=== PATIENT | female | born 1990 | race Caucasian/White ===

== ENCOUNTER 2019-08-23 19:10 | Emergency (ER) | payer MEDICAID, SELFPAY ==
[2019-08-23 19:15] VITALS: BP 158/97; PULSE 107; RESP 16; TEMP 37; O2SAT 98; BMI 56.7
--- NOTE | 2019-08-23 19:21 | PC.NURSE ---
Pt states radiant cooling helps with pain
--- NOTE | 2019-08-23 19:28 | W.ED.SKABFB ---
HPI - Skin/Abscess/Foreign Bdy General: Chief complaint: Skin/Abscess/Foreign Body Stated complaint: Burnt finger with steam Time Seen by Provider: 08/23/19 19:27 History of Present Illness: HPI narrative: Patient is a 29-year-old female comes to the ED with a burn on her left index finger. Patient was distally and water and she grabbed the pot spilled some hot water on her right index finger. This occurred just prior to arrival. She states she has lost a little sensation over the left index finger where she has a blister from the burn. Denies any fever, chills, chest pain, shortness of breath, abdominal pain, nausea, vomiting, hematuria, dysuria, diarrhea, constipation, blood in the stool, numbness tingling or weakness to extremities. Review of Systems General: Reports: 10 or more systems reviewed and unremarkable except in HPI and below PFSH ED PFSH: Statuses (acute, chronic, etc) shown below reflect problem list status as previously entered and may not be historically accurate Social History Smoking and tobacco status: never smoked Female Reproductive History: Date of last menstrual period: 08/09/19 Physical Exam Const: COMMON NORMALS: oriented x3 HENMT: COMMON NORMALS: normocephalic HEAD & SCALP: normocephalic MOUTH: oral and palatal mucosa normal THROAT: posterior oropharynx normal and uvula midline Neck/C-Spine: COMMON NORMALS: supple GENERAL: Yes normal visual inspection Resp: COMMON NORMALS: normal respiratory effort, no retractions, no use of accessory muscles and clear to auscultation bilaterally AUSCULTATION: clear to auscultation bilaterally Cardio: COMMON NORMALS: regular rate, regular rhythm, S1 normal heart sound, S2 normal heart sound, no gallops, no clicks, no murmurs and peripheral pulses 2+ throughout RATE: regular rate RHYTHM: regular rhythm HEART SOUNDS: S1 normal and S2 normal PERIPHERAL PULSES: pulses 2+ throughout GI: COMMON NORMALS: normal to inspection, nondistended, normoactive bowel sounds, soft to palpation, non-tender and no masses PALPATION: Yes soft : COMMON NORMALS: Yes no CVA tenderness BLADDER/KIDNEY EXAM: Yes no CVA tenderness Back/Pelvis: COMMON NORMALS: no CVA tenderness Neuro: COMMON NORMALS: oriented x3 and moves all extremities Skin: NARRATIVE SKIN EXAM: Patient has a small blister forming on dorsal side of left index finger. Mild tenderness upon palpation. Full range of motion and neurovascular intact. No other blistering on the hands or fingers of the left hand. No signs of infection. Course Vital Signs: Vital signs: Vital Signs Temperature 98.2 F 08/23/19 20:36 Pulse Rate 97 08/23/19 20:36 Respiratory Rate 14 08/23/19 20:36 Blood Pressure 108/68 08/23/19 20:36 Pulse Oximetry 98 08/23/19 20:36 Discharge Plan Discharge Patient Disposition: Home, Self-Care Clinical Impression: Second degree burn of single finger of left hand, not thumb Qualifiers: Encounter type: initial encounter Qualified Code(s): T23.222A - Burn of second degree of single left finger (nail) except thumb, initial encounter Condition: Stable Discharge Orders: Discharge Order (Routine); Ordered 08/23/19 Ordered By: Jose Alberto Forbes Referrals: Dennise Hicks MD [Primary Care Provider] - Discharge Diet: Regular Discharge Activity: Resume usual activity Activity Restrictions/Additional Instructions: Follow-up with primary care doctor in 7 days for reevaluation. Keep blister area clean and do not pop the blister. Allowing the blisters to heal an open up on its own. Replace bandages over blister and use some Triple Antibiotic ointment to help prevent any infections. Watch for signs of infection such as redness warmth and puslike drainage from burned area. 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
[2019-08-23 20:36] VITALS: BP 108/68; PULSE 97; RESP 14; TEMP 36.8; O2SAT 98
== END 2019-08-23 20:25 | disposition home or self-care (01) ==
PROVIDERS: Emergency Provider Physician Assistant; Family Provider Family Medicine; PCP Family Medicine
DX: T23.222A Burn of second degree of single left finger (nail) except thumb, initial encounter (principal); X11.8XXA Contact with other hot tap-water, initial encounter
CPT/HCPCS: 99281

== ENCOUNTER → 2020-01-23 13:54 | Outpatient (BNVA) | payer MEDICAID, SELFPAY | PROVIDERS: Family Provider Family Medicine; PCP Family Medicine; Visit Provider Specialist | DX: S62.634A Displaced fracture of distal phalanx of right ring finger, initial encounter for closed fracture (principal); W01.0XXA Fall on same level from slipping, tripping and stumbling without subsequent striking against object, initial encounter; M20.011 Mallet finger of right finger(s) | CPT/HCPCS: 73140 ==

== ENCOUNTER 2020-02-13 14:41 | Outpatient (CLI) | payer MEDICAID, SELFPAY ==
--- NOTE | 2020-02-13 14:44 | XR_ITS ---
WS: [id number] 3 views of the right fourth finger, 02/13/2020 Clinical Data: fracture Comparison: Right fourth finger, 01/23/2020. Findings: The fracture of the proximal dorsal base of the right fourth distal phalanx remains unchanged. XR/XR finger RT min 2V [id number] Impression: Fracture of the base of the right fourth distal phalanx.
== END 2020-02-13 14:42 | disposition home or self-care (01) ==
LOC: RAD 14:43
PROVIDERS: PCP Family Medicine; Visit Provider Specialist
DX: S62.634A Displaced fracture of distal phalanx of right ring finger, initial encounter for closed fracture (principal); X58.XXXA Exposure to other specified factors, initial encounter
CPT/HCPCS: 73140

== ENCOUNTER → 2020-03-08 14:26 | Outpatient (BNVA) | payer MEDICAID, SELFPAY | PROVIDERS: PCP Family Medicine; Visit Provider Specialist | DX: S62.634A Displaced fracture of distal phalanx of right ring finger, initial encounter for closed fracture (principal); S69.90XA Unspecified injury of unspecified wrist, hand and finger(s), initial encounter | CPT/HCPCS: 73130 ==

== ENCOUNTER → 2020-03-29 11:12 | Outpatient (BNVA) | payer MEDICAID, SELFPAY | PROVIDERS: PCP Family Medicine; Visit Provider Specialist | DX: S62.634D Displaced fracture of distal phalanx of right ring finger, subsequent encounter for fracture with routine healing (principal); S69.90XD Unspecified injury of unspecified wrist, hand and finger(s), subsequent encounter; X58.XXXD Exposure to other specified factors, subsequent encounter | CPT/HCPCS: 73140 ==

== ENCOUNTER → 2020-04-19 08:57 | Outpatient (BNVA) | payer MEDICAID, SELFPAY | PROVIDERS: PCP Family Medicine; Visit Provider Specialist | DX: S62.634D Displaced fracture of distal phalanx of right ring finger, subsequent encounter for fracture with routine healing (principal); W01.0XXD Fall on same level from slipping, tripping and stumbling without subsequent striking against object, subsequent encounter; M20.011 Mallet finger of right finger(s) | CPT/HCPCS: 73140 ==

== ENCOUNTER 2020-07-07 16:15 | Emergency (ER) | payer MEDICAID, SELFPAY ==
[2020-07-07 16:43] VITALS: BP 118/80; PULSE 95; RESP 18; TEMP 36.4; O2SAT 96; BMI 58.0
--- NOTE | 2020-07-07 17:12 | W.ED.BACK ---
HPI - Back Pain/Injury General: Chief Complaint: Back Pain/Injury Stated Complaint: BACK PAIN Time Seen by Provider: 07/07/20 16:52 Source: patient Mode of arrival: wheelchair Limitations: no limitations History of Present Illness: HPI Narrative: 30-year-old female patient presents to the emergency department with complaints of low back pain. She reports onset of pain when she awoke from a nap on 07/02/2020. Went to urgent care on 07/03/2020, prescribed Parafon forte which has not helped her pain. Reports similar symptoms approximately 1 year ago. She reports pain resolved. She reports lifting a couch, 4 to 6 weeks prior to onset of pain, reports currently moving to another location. States got mad at the couch and lifted the couch to through it outside, experienced LBP at the time but went away several days later. MD elicited complaint: back pain and back injury Pertinent past history: prior back pain Onset (ago): day(s) (6) Timing: constant Similar Symptoms Previously: Yes Quality: dull, aching and spasming Location: lumbar spine Exacerbating factors: movement, walking and lifting Relieving factors: immobilization Context: turning/twisting and bending Associated symptoms: Reports difficulty walking; Deny abdominal pain, chills, fecal incontinence, fever(s), nausea, numbness, syncope, urinary frequency, urinary urgency, vomiting or weakness Treatments prior to arrival: NSAIDS and other (muscle relaxer) Work related injury: No Review of Systems General: Reports: 10 or more systems reviewed and unremarkable except in HPI and below Const: Denies: fever(s), chills or diaphoresis Eyes: Denies: blurry vision or eye redness ENMT: Denies: throat pain, dental pain or disequilibrium Card: Denies: chest pain, swelling of feet/ankles, lightheadedness or syncope Resp: Denies: dyspnea, productive cough, non-productive cough or wheezing GI: Denies: abdominal pain, nausea, vomiting or fecal incontinence : Denies: urinary urgency Musc: Reports: back pain and limited range of motion (lumbar spine); Denies: neck pain, joint stiffness or muscle weakness Skin/Breast: Denies: rash, pruritus or changes in skin color Neuro: Reports: difficulty walking; Denies: headache(s), numbness in extremities, weakness in extremities or frequent falls Psych: Denies: anxiety or depression Zbigniew/Lymph: Denies: easy bruising PFSH ED PFSH: Medical History (Updated 07/07/20 @ 17:26 by HAO Jaquez) GERD (gastroesophageal reflux disease) Surgical History History of surgical removal of ganglion cyst Hx of section Hx of cholecystectomy Family History Mother Diabetes Hypertension Father Diabetes CAD (coronary artery disease) Social History Smoking and tobacco status: never smoked Female Reproductive History: Date of last menstrual period: 08/09/19 Physical Exam Const: COMMON NORMALS: no acute distress, patient oriented x3, healthy appearing and alert GENERAL APPEARANCE: cooperative, comfortable, well kempt and well hydrated NUTRITIONAL APPEARANCE: obese ORIENTATION/CONSCIOUSNESS: Yes awake, Yes oriented to person, Yes oriented to place and Yes oriented to time HENMT: COMMON NORMALS: normocephalic, atraumatic, Normal external nose present and moist oral mucous membranes HEAD & SCALP: normocephalic and atraumatic FACE & SINUS: normal facial exam and sinuses nontender NOSE: Normal external nose present Eye: COMMON NORMALS: Equal, round and reactive pupils present and EOMs intact bilaterally GENERAL EYE: appearance normal, both eyes and all related structures PUPIL: Yes Equal, round and reactive pupils present Neck/C-Spine: COMMON NORMALS: full ROM and no lymphadenopathy GENERAL: Yes normal visual inspection and Yes trachea midline CERVICAL SPINE: Yes cervical ROM normal, No pain with cervical ROM, No Cervical spine tenderness and No Paracervical muscle tenderness Lymph: LYMPHATIC: no lymphadenopathy noted Chest: COMMONS NORMALS: normal inspection of the chest and normal palpation of entire chest wall Resp: COMMON NORMALS: normal respiratory effort, No retractions, No use of accessory muscles and clear to auscultation bilaterally EFFORT & INSPECTION: Yes able to speak in complete sentences AUSCULTATION: clear to auscultation bilaterally Cardio: COMMON NORMALS: regular rhythm, S1 normal heart sound present, S2 normal heart sound present and Peripheral pulses 2+ throughout RHYTHM: regular rhythm HEART SOUNDS: S1 normal heart sound present and S2 normal heart sound present PERIPHERAL PULSES: Peripheral pulses 2+ throughout GI: COMMON NORMALS: Normal to inspection, nondistended, normoactive bowel sounds present, Soft to palpation and non-tender INSPECTION: Yes normal to inspection PALPATION: Yes Soft to palpation : COMMON NORMALS: Yes no CVA tenderness BLADDER/KIDNEY EXAM: Yes no CVA tenderness Back/Pelvis: COMMON NORMALS: no CVA tenderness and thoracic and lumbar spine normal to inspection THORACIC SPINE/UPPER BACK: Yes normal to inspection, Yes pain with ROM, No paraspinal muscle tenderness and No paraspinal muscle spasm LUMBAR SPINE/LOWER BACK: Yes normal to inspection, Yes ROM limited, Yes pain with ROM, Yes lumbar spinal tenderness Lumbar spinal tenderness location: L3, L4 and L5, Yes paraspinal muscle tenderness Lumbar paraspinal muscle tenderness: left, Yes paraspinal muscle spasm Lumbar paraspinal muscle spasm: left and Yes straight leg raise positive left PELVIS: Yes sciatic notch tenderness on the left COCCYX: no swelling Extremity: COMMON NORMALS: normal to inspection and capillary refill normal Neuro: STEPHEN COMA SCALE: document GCS findings Stephen coma scale eye opening: Spontaneous Stephen coma scale verbal response: Orientated Stephen coma scale motor response: Obey commands [place] coma scale total score: 15 COMMON NORMALS: patient oriented x3 and no focal motor deficits SENSORIUM/ORIENTATION: Yes alert, Yes oriented to person, Yes oriented to place and Yes oriented to time SPEECH: speech normal MONOFILAMENT EXAM PERFORMED: Yes Monofilament Exam (small fiber function): L great toe: normal, L 3rd toe: normal, L 5th toe: normal, R great toe: normal, R 3rd toe: normal and R 5th toe: normal MOTOR EXAM: 5/5 motor strength present throughout Psych: COMMON NORMALS: mental status grossly normal, Normal thought process present and cooperative APPEARANCE: Yes well kempt ACTIVITY/MOTOR BEHAVIOR: Yes appropriate eye contact THOUGHT PROCESS: Normal thought process present Skin: COMMON NORMALS: no rashes or lesions noted and turgor normal GENERAL SKIN EXAM: no rashes or lesions noted and turgor normal Course Vital Signs: Vital signs: Vital Signs Temperature 97.6 F 07/07/20 16:43 Pulse Rate 95 07/07/20 16:43 Respiratory Rate 18 07/07/20 16:43 Blood Pressure 118/80 07/07/20 16:43 Pulse Oximetry 96 07/07/20 16:43 Discharge Plan Discharge Patient Disposition: Home Clinical Impression: Low back strain Qualifiers: Encounter type: initial encounter Qualified Code(s): S39.012A - Strain of muscle, fascia and tendon of lower back, initial encounter Low back pain Qualifiers: Chronicity: acute Back pain laterality: midline Sciatica presence: with sciatica Sciatica laterality: sciatica of left side Qualified Code(s): M54.42 - Lumbago with sciatica, left side Condition: Stable Prescriptions: New Robaxin-750 750 mg tablet 750 mg PO Q8H Qty: 14 RF: 0 prednisone 20 mg tablet 20 mg PO BID 5 Days Qty: 10 RF: 0 No Action norgestimate-ethinyl estradiol [Tri-Sprintec (28)] 0.18/0.215/0.25 mg-35 mcg (28) tablet 1 tab PO DAILY RF: 0 Discharge Orders: Discharge ED (Routine); Ordered 07/07/20 Ordered By: Lindsay Carroll Referrals: Dennise Hicks MD [Primary Care Provider] - Discharge Diet: Usual diet Discharge Activity: Limit activity as instructed Patient Instructions: Low Back Strain (ED), Acute Low Back Pain (ED) Activity Restrictions/Additional Instructions: apply Warm, moist compresses alternate with cool compresses to the affected area several times daily Follow up with your PCP next week without fail outpatient MRI has been ordered - social service will contact you with appt take steroid with food to avoid stomach upset return to the ED if you experience leg weakness, falling, urinary or fecal incontinence Coding Level of Care Code 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
[2020-07-07] MEDS: orphenadrine 30 mg/mL Inj 2 mL 60 MG IM (17:38)
--- NOTE | 2020-07-11 12:10 | DCPLANNER ---
lodging facilities manager had message to schedule an outpatient MRI for patient. lodging facilities manager faxed the order for the MRI to centralized scheduling, will call for appointment information.
--- NOTE | 2020-08-06 16:50 | DCPLANNER ---
Patients MRI was denied by insurance. state manager called patient to inform patient that if she still thought that she needed an MRI that she would need to see her primary care, patient stated that she seen her primary care. Patient stated that she would still like to see someone. state manager called the ortho clinic, spoke with Jody, gave clinic patients information. state manager was told that patients information would be printed off and reviewed. Clinic will call patient with appointment information.
--- NOTE | 2020-08-10 14:32 | DCPLANNER ---
Patient has a follow up appointment scheduled for Friday, August 14, [address] at 1:[address] Sawant. Clinic will call patient with appointment information.
--- NOTE | 2020-09-14 14:56 | DCPLANNER ---
Patient had a follow up appointment scheduled for 08.14.20 with ortho - patient did attend appointment.
== END 2020-07-07 17:56 | disposition home or self-care (01) ==
PROVIDERS: Emergency Provider Nurse Practitioner Family; PCP Family Medicine
DX: S39.012A Strain of muscle, fascia and tendon of lower back, initial encounter (principal); M54.42 Lumbago with sciatica, left side; X50.0XXA Overexertion from strenuous movement or load, initial encounter
CPT/HCPCS: 12345; 96372; 99281; 99283; J2360

== ENCOUNTER → 2020-08-14 14:02 | Outpatient (BNVA) | payer MEDICAID, SELFPAY | PROVIDERS: PCP Family Medicine; Visit Provider Orthopaedic Surgery | DX: M54.9 Dorsalgia, unspecified (principal) | CPT/HCPCS: 72114 ==

== ENCOUNTER 2020-08-26 17:46 | Emergency (ER) | payer BC, MEDICAID, SELFPAY ==
[2020-08-26 17:49] VITALS: BP 153/81; PULSE 88; RESP 18; O2SAT 95; BMI 59.8
--- NOTE | 2020-08-26 17:51 | ED_ITS ---
HPI - Back Pain/Injury General: Chief Complaint: Back Pain/Injury Stated Complaint: BACK PAIN Time Seen by Provider: 08/26/20 17:51 Source: patient Mode of arrival: ambulatory Limitations: no limitations History of Present Illness: HPI Narrative: 30-year-old female comes in today for complaints of low back pain. Patient states that she went to get up from the toilet and felt a sudden sharp pain to her low mid back radiating to the left side. Patient appears well. Patient appears in no distress. Patient reports that she had sudden onset of pain and difficulty standing without discomfort. Patient is obese, with her back pain starting about 2 months ago. Review of Systems General: Reports: 10 or more systems reviewed and unremarkable except in HPI and below Musc: Reports: back pain PFSH ED PFSH: Medical History (Updated 08/26/20 @ 19:28 by NED Holcomb) GERD (gastroesophageal reflux disease) Surgical History History of surgical removal of ganglion cyst Hx of section Hx of cholecystectomy Family History Mother Diabetes Hypertension Father Diabetes CAD (coronary artery disease) Social History Smoking and tobacco status: never smoked Female Reproductive History: Date of last menstrual period: 08/09/19 Physical Exam Const: COMMON NORMALS: no acute distress and patient oriented x3 GENERAL APPEARANCE: cooperative HENMT: COMMON NORMALS: normocephalic and Normal external nose present HEAD & SCALP: normal to inspection and normocephalic NOSE: Normal external nose present MOUTH: Normal oral and palatal mucosa present Eye: GENERAL EYE: appearance normal, both eyes and all related structures Neck/C-Spine: COMMON NORMALS: full ROM Chest: COMMONS NORMALS: normal inspection of the chest Resp: COMMON NORMALS: normal respiratory effort EFFORT & INSPECTION: Yes able to speak in complete sentences Cardio: COMMON NORMALS: regular rate and regular rhythm RATE: regular rate RHYTHM: regular rhythm GI: COMMON NORMALS: non-tender : COMMON NORMALS: Yes no CVA tenderness BLADDER/KIDNEY EXAM: Yes no CVA tenderness Back/Pelvis: COMMON NORMALS: no CVA tenderness OTHER: Tenderness in the L4- L5, L5-S1 area to the mid vertebral area, tenderness to the left paraspinous muscles. Negative leg lift test. Extremity: COMMON NORMALS: normal to inspection Neuro: COMMON NORMALS: patient oriented x3 and moves all extremities Psych: COMMON NORMALS: mental status grossly normal and cooperative Skin: COMMON NORMALS: no rashes or lesions noted GENERAL SKIN EXAM: no rashes or lesions noted Course Vital Signs: Vital signs: Vital Signs Pulse Rate 88 08/26/20 17:49 Respiratory Rate 18 08/26/20 17:49 Blood Pressure 153/81 08/26/20 17:49 Pulse Oximetry 95 08/26/20 17:49 MDM - Back Pain/Injury MDM Narrative: Medical decision making narrative: Patient presents with low back pain. Patient reports pain exacerbated when she stood up from the toilet today causing her to cry and elicit severe discomfort. On exam patient has muscle tenderness of the left side of the paraspinous muscles of the lumbar spine. Patient also had some central spinal vertebral tenderness at L5-S1 area. Differential diagnosis includes intervertebral disc disease, facet arthropathy, lumbar strain. Due to persistent worsening pain for more than 60 days we went ahead and did a CT of the lumbar spine which indicated degenerative spinal joint disease and facet arthropathy of the lumbar and sacroiliac areas. No sign of protrusion disc or canal stenosis was noted. I reviewed the exam with patient with recommendations for treatment and follow-up. Patient reported understanding agreed to plan. Discharge Plan Discharge Patient Disposition: Home Clinical Impression: Arthritis of facet joint of lumbar spine, Sacral disorder Condition: Stable Prescriptions: New ibuprofen 800 mg tablet 800 mg PO Q8H PRN (Reason: pain) Qty: 30 RF: 0 cyclobenzaprine 10 mg tablet 10 mg PO BEDTIME Qty: 10 RF: 0 No Action norgestimate-ethinyl estradiol [Tri-Sprintec (28)] 0.18/0.215/0.25 mg-35 mcg (28) tablet 1 tab PO DAILY RF: 0 Tylenol Extra Strength 500 mg Tablet 1,000 mg PO PRN RF: 0 levothyroxine 25 mcg Tablet 25 mcg PO QAM RF: 0 diclofenac sodium 1 tab PO TID RF: 0 Discharge Orders: Discharge ED (Routine); Ordered 08/26/20 Ordered By: Lio Loving Referrals: Dennise Hicks MD [Primary Care Provider] - Discharge Diet: Usual diet Discharge Activity: Increase activity as tolerated Patient Instructions: Back Pain (ED) Activity Restrictions/Additional Instructions: Home and rest. Activity as tolerated. Gentle stretching and range of motion exercise. Follow-up with primary care for further treatment. Return to the emergency department for new concerns. Do not use ibuprofen with diclofenac or naproxen. 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
--- NOTE | 2020-08-26 18:01 | CTR_ITS ---
PROCEDURE INFORMATION: Exam: CT Lumbar Spine Without Contrast Exam date and time: 08/26/2020 6:07 PM Age: 30 years old Clinical indication: Low back pain; Patient HX: C/O lbp denies specific injury; Additional info: Injury, lumbar radiculopathy TECHNIQUE: Imaging protocol: Computed tomography images of the lumbar spine without contrast. Radiation optimization: All CT scans at this facility use at least one of these dose optimization techniques: automated exposure control; mA and/or kV adjustment per patient size (includes targeted exams where dose is matched to clinical indication); or iterative reconstruction. COMPARISON: CR XR lumbar spine min 4V [id number] 08/14/2020 2:08 PM RADIATION DOSE METRICS: Total DLP (mGy-cm): 2410.23 FINDINGS: Vertebrae: Mild to moderate lower lumbar facet arthropathy. L1-L2: No significant disc protrusion. No severe spinal canal stenosis. No significant neural foraminal narrowing. L2-L3: No significant disc protrusion. No spinal canal stenosis. No neural foraminal narrowing. L3-L4: No significant disc protrusion. No severe spinal canal stenosis. No significant neural foraminal narrowing. L4-L5: No significant disc protrusion. No severe spinal canal stenosis. No significant neural foraminal narrowing. L5-S1: No significant disc protrusion. No severe spinal canal stenosis. No significant neural foraminal narrowing. Sacrum/coccyx: There are [id number] degenerative changes across the sacroiliac joints. Soft tissues: Unremarkable. CT/CT lumbar spine wo con* [id number] IMPRESSION: 1. There are [id number] degenerative changes across the sacroiliac joints. 2. Mild to moderate lower lumbar facet arthropathy. Radiation Dose CTDIVOL = (mGy): DLP = 2410.23 (mGy-cm)
--- NOTE | 2020-08-26 18:44 | PC.PHAR ---
pt pharmacy is closed to verify medications-pt states she takes the medications entered and states she is unsure of the mg on the diclofenac and states she thinks she takes 25mcg of the levothyroxine and states she thinks the name of her bc is [id number]
[2020-08-26] MEDS: ibuprofen 800 mg tablet PO (19:28)
[2020-08-26 19:35] VITALS: BP 138/80; PULSE 87; RESP 18; O2SAT 98
== END 2020-08-26 19:36 | disposition home or self-care (01) ==
PROVIDERS: Emergency Provider Nurse Practitioner Family; PCP Family Medicine
DX: M47.816 Spondylosis without myelopathy or radiculopathy, lumbar region (principal); M53.3 Sacrococcygeal disorders, not elsewhere classified
CPT/HCPCS: 12345; 72131; 99281; 99283

== ENCOUNTER 2020-11-30 20:37 | Emergency (ER) | payer BC, MEDICAID, SELFPAY ==
[2020-11-30 20:53] VITALS: BP 163/107; PULSE 106; RESP 18; TEMP 37.1; O2SAT 96; BMI 59.3
[2020-11-30 23:43] VITALS: BP 162/75; PULSE 93; RESP 18; O2SAT 96
--- NOTE | 2020-11-30 23:52 | XRR_ITS ---
PROCEDURE INFORMATION: Exam: XR Chest Exam date and time: 12/01/2020 12:06 AM Age: 30 years old Clinical indication: Cough; Additional info: Cough congestion TECHNIQUE: Imaging protocol: XR of the chest. Views: 1 view. COMPARISON: CR Chest 2 views* [id number] 06/19/2019 11:00 AM FINDINGS: Lungs: Unremarkable. No consolidation. Pleural spaces: Unremarkable. No pleural effusion. No pneumothorax. Heart/Mediastinum: Unremarkable. No cardiomegaly. Bones/joints: Unremarkable. XR/XR chest 1V portable [id number] IMPRESSION: No acute findings.
--- NOTE | 2020-12-01 00:18 | ED_ITS ---
HPI - General Adult General: Chief complaint: General Medical Stated complaint: cough,congestion Time Seen by Provider: 11/30/20 23:28 Source: patient Mode of arrival: ambulatory Limitations: no limitations History of Present Illness: HPI narrative: 30-year-old female patient presents to the emergency department with 4-day history of chest heaviness that started 4 days ago, she had onset of cough and congestion started yesterday. She reports coughing up yellow thick sputum. She states noted increased cough with wheezing tonight. She reports her daughter has been ill with similar symptoms last week. She denies fever chills, denies nausea vomiting diarrhea. She denies difficulty breathing. She denies leg swelling. She states does not have Covid -reports her daughter was ill with Covid last June and this is not what she is experiencing because she is not that sick. Onset (ago): day(s) (4) Associated symptoms: Reports cough; Deny chest pain, diaphoresis, dyspnea, headache(s), malaise, nausea, rash, palpitations or vomiting Treatments prior to arrival: none Review of Systems General: Reports: 10 or more systems reviewed and unremarkable except in HPI and below Const: Denies: fever(s), chills, body aches, fatigue, malaise or diaphoresis Eyes: Denies: blurry vision or eye redness ENMT: Reports: nasal discharge and nasal congestion; Denies: throat pain, odynophagia, swelling of lips/tongue, dental pain or disequilibrium Card: Denies: chest pain, palpitations, irregular heart rhythm, edema, swelling of feet/ankles, lightheadedness, dyspnea on exertion, orthopnea, leg pain with exertion or acrocyanosis Resp: Reports: productive cough and chest congestion; Denies: dyspnea, non-productive cough, wheezing or hemoptysis GI: Denies: abdominal pain, nausea, vomiting, heartburn, diarrhea or constipation : Denies: difficulty voiding or dysuria Musc: Denies: neck pain or back pain Skin/Breast: Denies: rash or pruritus Neuro: Denies: headache(s), numbness in extremities, weakness in extremities, difficulty walking or behavioral changes Psych: Denies: anxiety or depression Zbigniew/Lymph: Denies: easy bruising [facility] ED PFSH: Medical History (Updated 12/01/20 @ 01:14 by HAO Jaquez) GERD (gastroesophageal reflux disease) Surgical History History of surgical removal of ganglion cyst Hx of section Hx of cholecystectomy Family History Mother Diabetes Hypertension Father Diabetes CAD (coronary artery disease) Social History Smoking and tobacco status: never smoked Female Reproductive History: Date of last menstrual period: 08/09/19 Physical Exam Const: COMMON NORMALS: no acute distress, patient oriented x3, healthy appearing, alert and well nourished GENERAL APPEARANCE: cooperative, comfortable, well kempt, well developed and well hydrated NUTRITIONAL APPEARANCE: overweight ORIENTATION/CONSCIOUSNESS: Yes awake, Yes oriented to person, Yes oriented to place and Yes oriented to time HENMT: COMMON NORMALS: normocephalic, atraumatic, external ears normal, EAC's normal, TM's normal bilaterally, Normal external nose present and moist oral mucous membranes HEAD & SCALP: normal to inspection, normocephalic and atraumatic FACE & SINUS: normal facial exam, sinuses nontender and face symmetric NOSE: Normal external nose present EXTERNAL EAR: Yes external ears normal EXTERNAL AUDITORY CANAL: EAC's normal TYMPANIC MEMBRANE: TM's normal bilaterally MOUTH: Normal oral and palatal mucosa present, lip normal and tongue normal THROAT: posterior oropharynx normal, tonsils normal and uvula midline Eye: COMMON NORMALS: Equal, round and reactive pupils present and EOMs intact bilaterally GENERAL EYE: appearance normal, both eyes and all related structures ALIGNMENT: Yes alignment normal PERIORBITAL: periorbital findi ngs normal EYELID: eyelids normal PUPIL: Yes Equal, round and reactive pupils present Neck/C-Spine: COMMON NORMALS: full ROM, no lymphadenopathy and supple GENERAL: Yes normal visual inspection and Yes trachea midline CERVICAL SPINE: Yes cervical ROM normal Lymph: LYMPHATIC: no lymphadenopathy noted Chest: COMMONS NORMALS: normal inspection of the chest and normal palpation of entire chest wall Resp: COMMON NORMALS: normal respiratory effort, No retractions, No use of accessory muscles and clear to auscultation bilaterally EFFORT & INSPECTION: Yes able to speak in complete sentences, No respiratory distress, No labored and No audible wheezes AUSCULTATION: clear to auscultation bilaterally Cardio: COMMON NORMALS: regular rate, regular rhythm, S1 normal heart sound pr esent, S2 normal heart sound present and Peripheral pulses 2+ throughout RATE: regular rate RHYTHM: regular rhythm HEART SOUNDS: S1 normal heart sound present and S2 normal heart sound present PERIPHERAL PULSES: Peripheral pulses 2+ throughout GI: COMMON NORMALS: Normal to inspection, nondistended, normoactive bowel sounds present, Soft to palpation and non-tender INSPECTION: Yes normal to inspection PALPATION: Yes Soft to palpation : COMMON NORMALS: Yes no CVA tenderness BLADDER/KIDNEY EXAM: Yes no CVA tenderness Back/Pelvis: COMMON NORMALS: no CVA tenderness, thoracic and lumbar spine normal to inspection, no thoracic nor lumbar tenderness, thoraco-lumbar ROM normal and straight leg raise negative bilaterally Extremity: COMMON NORMALS: normal to inspection, full ROM, capillary refill normal and no pedal edema GENERAL: Yes normal exam except as noted Neuro: COMMON NORMALS: patient oriented x3 and no focal motor deficits SENSORIUM/ORIENTATION: Yes alert, Yes oriented to person, Yes oriented to place and Yes oriented to time Psych: COMMON NORMALS: mental status grossly normal, Normal thought process present and cooperative APPEARANCE: Yes well kempt ACTIVITY/MOTOR BEHAVIOR: Yes appropriate eye contact THOUGHT PROCESS: Normal thought process present Skin: COMMON NORMALS: no rashes or lesions noted and turgor normal GENERAL SKIN EXAM: no rashes or lesions noted and turgor normal Course Reevaluation(s): Reevaluation #1: Albuterol treatment with inhaler; she reports can breathe much improved chest heaviness resolved and cough resolved. Covid testing offered but patient declined. Time: 01:00 Vital Signs: Vital signs: Vital Signs Temperature 98.8 F 11/30/20 20:53 Pulse Rate 92 12/01/20 01:43 Respiratory Rate 18 12/01/20 01:43 Blood Pressure 121/71 12/01/20 01:43 Pulse Oximetry 94 12/01/20 01:43 [facility] - General Adult Imaging Data^: CXR: Radiologist's impression: Raz [address] [id number] ReportSigned Patient: uJan A Boudreaux #: [id number]: 1990Acct#:[id number]/Sex: 30 / FADM Date: 11/30/20Loc: ERRoom/Bed:Attending Dr: Ordering Provider/Ordering MD: Lindsay Carroll Date of Service: 11/30/20 Procedure(s): XR chest 1V portable [id number] Accession Number(s): [id number] Report Number: [id number] PROCEDURE INFORMATION: Exam: XR Chest Exam date and time: 12/01/2020 12:06 AM Age: 30 years old Clinical indication: Cough; Additional info: Cough congestion TECHNIQUE: Imaging protocol: XR of the chest. Views: 1 view. COMPARISON: CR Chest 2 views* [id number] 06/19/2019 11:00 AM FINDINGS: Lungs: Unremarkable. No consolidation. Pleural spaces: Unremarkable. No pleural effusion. No pneumothorax. Heart/Mediastinum: Unremarkable. No cardiomegaly. Bones/joints: Unremarkable. XR/XR chest 1V portable [id number] IMPRESSION: No acute findings. Dictated By:Jose Alex MDSigned By:Jose Alex MDSigned Date/Time:12/01/2047DD/ Discharge Plan Discharge Patient Disposition: Home Clinical Impression: Acute bronchitis Qualifiers: Bronchitis organism: unspecified organism Qualified Code(s): J20.9 - Acute bronchitis, unspecified Condition: Stable Prescriptions: New prednisone 20 mg tablet 20 mg PO DAILY 5 Days Qty: 5 RF: 0 No Action norgestimate-ethinyl estradiol [Tri-Sprintec (28)] 0.18/0.215/0.25 mg-35 mcg (28) tablet 1 tab PO DAILY RF: 0 Tylenol Extra Strength 500 mg Tablet 1,000 mg PO PRN RF: 0 levothyroxine 25 mcg Tablet 25 mcg PO QAM RF: 0 diclofenac sodium 1 tab PO TID RF: 0 ibuprofen 800 mg tablet 800 mg PO Q8H PRN (Reason: pain) Qty: 30 RF: 0 cyclobenzaprine 10 mg tablet 10 mg PO BEDTIME Qty: 10 RF: 0 Discharge Orders: Discharge ED (Routine); Ordered 12/01/20 Ordered By: Lindsay Carroll Referrals: Godfrey Mitchell MD [Primary Care Provider] - Discharge Diet: Usual diet Discharge Activity: Resume usual activity Patient Instructions: How to Use a Metered-Dose Inhaler (ED), Acute Bronchitis (ED), Opioid Safety Activity Restrictions/Additional Instructions: Drink plenty of fluids to stay hydrated Albuterol inhaler 2 puffs every 4 hours as directed by respiratory therapy, use as needed for cough and congestion/chest heaviness Return to the emergency department if you develop chest pain, shortness of breath, inability to catch your breath or other concerning symptoms Follow-up with your primary care next week if not completely improved Tylenol/ibuprofen as needed for pain/discomfort. Use as directed on bottle. Coding Level of Care Code ED Sander Hand for Hermelindo 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
[2020-12-01] MEDS: predniSONE 20 mg Tablet PO (00:36)
[2020-12-01 00:37] VITALS: BP 141/91; PULSE 92; RESP 18; O2SAT 96
[2020-12-01 01:00] VITALS: PULSE 97; RESP 18; O2SAT 97
[2020-12-01] MEDS: albuterol 8 gm MDI 2 PUFF INHALATION (01:01)
[2020-12-01 01:06] VITALS: PULSE 92
[2020-12-01 01:43] VITALS: BP 121/71; PULSE 92; RESP 18; O2SAT 94
== END 2020-12-01 01:46 | disposition home or self-care (01) ==
PROVIDERS: Emergency Provider Nurse Practitioner Family; PCP Family Medicine
DX: J20.9 Acute bronchitis, unspecified (principal)
CPT/HCPCS: 71045; 94640; 99283; J3535; J7512

== ENCOUNTER 2021-07-09 10:01 | Outpatient (CLI) | payer BC, MEDICAID, SELFPAY ==
[2021-07-09 10:20] VITALS: BP 131/84; PULSE 113; RESP 20; TEMP 36.9; O2SAT 97; BMI 62.3
--- NOTE | 2021-07-09 12:12 | PC.NURSE ---
One attempt at IV was performed by JULIA, two attempts by WINSTON and one attempt by TOBI, pt requested medication by injection rather than more attempts at IV starts. Explained the injections are thought to be less effective than the infusion, pt voiced understanding.
[2021-07-09 12:48] VITALS: BP 124/71; PULSE 97; RESP 18; TEMP 36.9; O2SAT 94
== END 2021-07-09 10:02 | disposition home or self-care (01) ==
LOC: OPS 10:07
PROVIDERS: PCP Pediatrics; Visit Provider Nurse Practitioner Family
DX: U07.1 COVID-19 (principal)
CPT/HCPCS: 96372

== ENCOUNTER 2021-07-10 12:10 | Emergency (ER) | payer BC, MEDICAID, SELFPAY ==
--- NOTE | 2021-07-10 12:15 | ED_ITS ---
HPI - SOB/Dyspnea General: Chief Complaint: COVID symptoms Stated Complaint: SOB/COVID + Time Seen by Provider: 07/10/21 12:14 History of Present Illness: HPI Narrative: Ms. Boudreaux is a 31-year-old lady with significant past medical history of hypothyroidism who presents to the emergency department due to shortness of breath, nausea, vomiting. Symptom onset was 6 days ago. She initially had cough which was not productive and generalized malaise. She tested positive for Covid at that time. Since that time symptoms have continued. She notes nausea, vomiting, and diarrhea that started yesterday. She describes not being able to keep anything down and f eeling weak. Overall the course of symptoms has worsened. Intensity is moderate to severe. No other known specific exacerbating or alleviating factors. Review of Systems General: Reports: 10 or more systems reviewed and unremarkable except in HPI and below PFSH ED PFSH: Medical History (Updated 07/10/21 @ 19:47 by Masood López MD) GERD (gastroesophageal reflux disease) Surgical History History of surgical removal of ganglion cyst Hx of section Hx of cholecystectomy Family History Mother Diabetes Hypertension Father Diabetes CAD (coronary artery disease) Social History Smoking and tobacco status: never smoked Female Reproductive History: Date of last menstrual period: 08/09/19 Physical Exam Narrative: EXAM NARRATIVE: GENERAL/CONSTITUTIONAL -somewhat ill-appearing. No acute distress. Eyes - PERRL, no conjunctival injection ENMT - Atraumatic external nose and ears. Moist mucous membranes NECK - supple. trachea midline CARDIOVASCULAR - regular rate and rhythm. Normal peripheral perfusion RESPIRATORY - coarse to auscultation bilaterally. When not on supplemental oxygen patient has tachypnea and mild increased work of breathing. ABDOMEN/GI - Nontender/Nondistended. No tenderness to percussion or evidence of peritonitis MSK - Extremities without obvious deformity or tenderness to palpation SKIN - Warm, Dry NEURO - alert and appropriately oriented. Moves all extremities equally. Course ED course: - Patient was seen and evaluated by me at bedside - Patient placed on cardiac monitors, IV access obtained - Initial evaluation notable for exam as noted above, nontoxic -Symptom treatment ordered - Labs notable for no leukocytosis, similar to prior now microcytic anemia. No acute electrolyte abnormality to explain symptoms. Urinalysis not concerning for urinary tract infection in the absence of specific urinary symptoms, nitrate negative, and presence of squamous epithelial contamination. - Imaging notable for ED read of chest x-ray with only minimal findings. After discussion with the patient, in the context of symptoms and clinical exam a D- dimer was ordered. D-dimer elevated and therefore CTA was ordered. No evidence of pulmonary embolism. - Upon serial reexamination after treatment the patient was improved. Patient was comfortable with discharge on home oxygen and qualified for home oxygen after RT evaluation. - Based on patient history, evaluation, labs, and imaging as interpreted the most likely cause of the patient's condition is COVID-19 with hypoxemia requiring supplemental oxygen. - The results of ED evaluation were discussed with the patient including prescriptions and/or symptomatic cares (if applicable) including appropriate and responsible use, followup plan, and return precautions. The patient verbalized understanding and felt safe for discharge. - Patient discharged in satisfactory condition. Vital Signs: Vital signs: Vital Signs Pulse Rate 96 07/10/21 18:06 Respiratory Rate 18 07/10/21 12:26 Blood Pressure 112/76 07/10/21 12:26 Pulse Oximetry 88 L 07/10/21 19:16 MDM - SOB/Dyspnea Medical Records: Attestation: I reviewed the patient's medical records. Lab Data: Attestation: I reviewed the patient's lab results. Labs: Lab Results 07/10/21 07/10/21 07/10/21 13:33 13:33 13:33 WBC 6.0 10^3/uL 10^3/ uL (4.0-10.0) RBC 4.43 10^6/uL 10^6 /uL (4.1-5.3) Hgb 10.8 g/dL L g/dL (11.5-15.3) Hct 34.7 % L % (37.0-47.0) MCV 78.3 fl L fl (81-99) MCH 24.4 pg L pg (28.0-34.0) MCHC 31.1 g/dL g/dL (30.0-36.0) RDW 15.8 % H % (12.1-15.1) Plt Count 237 10^3/cmm 10^3 /cmm (130-400) MPV 11.0 fL H fL (7.4-10.4) Neut % (Auto) 61.2 % % Lymph % (Auto) 33.1 % % [place] % (Auto) 5.3 % % Eos % (Auto) 0.2 % % Baso % (Auto) 0.0 % % Neut # (Auto) 3.67 10^3/uL 10^3 /uL (1.8-7.7) Lymph # (Auto) 2.0 10^3/uL 10^3/ uL (0.8-4.8) [place] # (Auto) 0.3 10^3/uL 10^3/ uL (0.2-0.9) Eos # (Auto) 0.0 10^3/uL 10^3/ uL (0.0-0.8) Baso # (Auto) 0.0 10^3/uL 10^3/ uL (0.0-0.1) Nucleated RBC % (a uto) 0 % % Nucleated RBCs # 0.0 /100WBC /100W BC D-Dimer Specimen Type Sample Site ABG pH ABG pCO2 ABG pO2 ABG HCO3 ABG Base Excess Job Test Hematocrit O2 Delivery Device Auto Mechanics Teacher ID Sodium 137 mmol/L mmol/L (136-145) Potassium 3.7 mmol/L mmol/L (3.5-5.1) Chloride 101 mmol/L mmol/L (98-107) Carbon Dioxide 22 mmol/L mmol/L (22-29) Anion Gap 17.7 (5-19) BUN 5 mg/dL L mg/dL (6-20) Creatinine 0.8 mg/dL mg/dL (0.5-0.9) GFR Calculation 83.7 mL/min L mL/ min (90-130) Glucose 88 mg/dL mg/dL (65-115) Calculated Osmolal ity 281 mOsm/kg L mOs m/kg (285-295) Lactate 1.5 mmol/L mmol/L (0.5-2.2) Calcium 7.5 mg/dL L mg/dL (8.5-10.5) Total Bilirubin 0.2 mg/dL mg/dL (0.15-1.2) AST 44 U/L H U/L (0-32) ALT 16 U/L U/L (0-33) Alkaline Phosphata se 80 IU/L IU/L (35-105) C-Reactive Protein 72.3 mg/L H mg/L (0.0-4.9) Total Protein 6.4 g/dL L g/dL (6.6-8.7) Albumin 3.1 g/dL L g/dL (3.5-5.2) Globulin 3.3 g/dL g/dL (1.3-4.6) Procalcitonin 0.09 ng/mL ng/mL (0-0.5) TSH 3.28 uIU/mL uIU/m L (0.27-4.20) HCG, Qual Urine Color Urine Appearance Urine pH Ur Specific Gravit y Urine Protein Urine Glucose (UA) Urine Ketones Urine Blood Urine Nitrate Urine Bilirubin Urine Urobilinogen Ur Leukocyte Maria Guadalupe ase Urine RBC Urine WBC Ur Squamous Epith Cells Amorphous Sediment Urine Bacteria 07/10/21 07/10/21 07/10/21 13:33 13:33 13:50 WBC RBC Hgb Hct MCV MCH MCHC RDW Plt Count MPV Neut % (Auto) Lymph % (Auto) [place] % (Auto) Eos % (Auto) Baso % (Auto) Neut # (Auto) Lymph # (Auto) [place] # (Auto) Eos # (Auto) Baso # (Auto) Nucleated RBC % (a uto) Nucleated RBCs # D-Dimer Specimen Type Arterial Sample Site Radial, right ABG pH 7.47 H (7.35-7.45) ABG pCO2 37.0 mmHg mmHg (35-45) ABG pO2 49.6 mmHg L mmHg (80.0-100.0) ABG HCO3 26.7 mmol/L H mmo l/L (22-26) ABG Base Excess 3.0 mmol/L H mmol /L (-2.0-2.0) Job Test Pos Hematocrit 35.7 % L % (37-47) O2 Delivery Device None Auto Mechanics Teacher ID Hensa Sodium Potassium Chloride Carbon Dioxide Anion Gap BUN Creatinine GFR Calculation Glucose Calculated Osmolal ity Lactate Calcium Total Bilirubin AST ALT Alkaline Phosphata se C-Reactive Protein Total Protein Albumin Globulin Procalcitonin TSH HCG, Qual Negative (Negative) Urine Color Yellow (Yellow) Urine Appearance Clear (CLEAR) Urine pH 5 (5-7) Ur Specific Gravit y 1.020 (1.005-1.030) Urine Protein Trace (Negative) Urine Glucose (UA) Norm (Normal) Urine Ketones Negative (Negative) Urine Blood Neg (Negative) Urine Nitrate Negative (Negative) Urine Bilirubin 1+ H (Negative) Urine Urobilinogen 4 mg/dL H mg/dL (Negative) Ur Leukocyte Maria Guadalupe ase Negative (Negative) Urine RBC None /hpf /hpf (0-2) Urine WBC 0-4 /hpf H /hpf (0-5) Ur Squamous Epith Cells 15-25 /hpf H /hpf (0-5) Amorphous Sediment Not Reportable Urine Bacteria 3+ /hpf H /hpf (NONE) 07/10/21 15:20 WBC RBC Hgb Hct MCV MCH MCHC RDW Plt Count MPV Neut % (Auto) Lymph % (Auto) [place] % (Auto) Eos % (Auto) Baso % (Auto) Neut # (Auto) Lymph # (Auto) [place] # (Auto) Eos # (Auto) Baso # (Auto) Nucleated RBC % (a uto) Nucleated RBCs # D-Dimer 0.68 ug/mIFEU H u g/mIFEU (0-0.59) Specimen Type Sample Site ABG pH ABG pCO2 ABG pO2 ABG HCO3 ABG Base Excess Job Test Hematocrit O2 Delivery Device Auto Mechanics Teacher ID Sodium Potassium Chloride Carbon Dioxide Anion Gap BUN Creatinine GFR Calculation Glucose Calculated Osmolal ity Lactate Calcium Total Bilirubin AST ALT Alkaline Phosphata se C-Reactive Protein Total Protein Albumin Globulin Procalcitonin TSH HCG, Qual Urine Color Urine Appearance Urine pH Ur Specific Gravit y Urine Protein Urine Glucose (UA) Urine Ketones Urine Blood Urine Nitrate Urine Bilirubin Urine Urobilinogen Ur Leukocyte Maria Guadalupe ase Urine RBC Urine WBC Ur Squamous Epith Cells Amorphous Sediment Urine Bacteria Discharge Plan Discharge Patient Disposition: Home Clinical Impression: COVID-19, Hypoxemia Condition: Stable Prescriptions: No Action Sprintec (28) 0.25-35 mg-mcg Tablet 1 tab PO DAILY RF: 0 NyQuil 7.5-60-30-1,000 mg/30 mL Liquid 30 ml PO Q6H PRN (Reason: Cold Symptoms) RF: 0 Prilosec 40 mg Capsule,Delayed Release(Dr/Ec) 40 mg PO QAM RF: 0 Mobic 7.5 mg Tablet 7.5 mg PO DAILY PRN (Reason: unknown) RF: 0 Tessalon Perles 100 mg Capsule 100 mg PO Q8H PRN (Reason: Cough) RF: 0 Dayquil Cold And Flu 30 ml PO Q6H PRN (Reason: Cold Symptoms) RF: 0 acetaminophen [Tylenol Extra Strength] 500 mg Tablet 1,000 mg PO Q4H PRN (Reason: Pain) RF: 0 levothyroxine 25 mcg Tablet 25 mcg PO QAM RF: 0 ibuprofen 800 mg tablet 800 mg PO Q8H PRN (Reason: pain) Qty: 30 RF: 0 Discharge Orders: Discharge ED (Routine); Ordered 07/10/21 Ordered By: Masood López Other Ambulatory Orders: DME: Oxygen (Order) Location: None Selected Ordered By: Masood López Referrals: Stacy Suggs MD [Primary Care Provider] - Discharge Diet: Usual diet Discharge Activity: Resume usual activity Patient Instructions: Using Oxygen at Home (ED), Pulse Oximetry (ED), COVID-19 (Coronavirus Disease 2019) (ED) Activity Restrictions/Additional Instructions: Thank you for visiting the emergency department. You were seen and evaluated for shortness of breath and generalized symptoms. These are likely all related to COVID-19. You will be sent home with home oxygen. Please follow-up with your primary care provider. Return to the emergency department for worsening symptoms or anything else that you are concerned about and feel needs emergency department evaluation. Coding Level of Care Code ED Fire Observer for Hermelindo Jean Baptiste
[2021-07-10 12:26] VITALS: BP 112/76; PULSE 103; RESP 18; O2SAT 93; BMI 62.3
--- NOTE | 2021-07-10 12:58 | XRR_ITS ---
PROCEDURE INFORMATION: Exam: XR Chest Exam date and time: 07/10/2021 12:58 PM Age: 31 years old Clinical indication: Condition or disease; Other: Covid TECHNIQUE: Imaging protocol: XR of the chest. Views: 1 view. COMPARISON: CR XR chest 1V portable [id number] 11/30/2020 11:53 PM FINDINGS: Lungs: Linear interstitial densities seen in the bilateral perihilar and lower lobes these findings are new since prior examination. Pleural spaces: Unremarkable. No pleural effusion. No pneumothorax. Heart/Mediastinum: Unremarkable. No cardiomegaly. Bones/joints: Unremarkable. XR/XR chest 1V portable [id number] IMPRESSION: Linear interstitial densities bilateral perihilar and lower lobes.
[2021-07-10] MEDS: sodium chloride 0.9% 500 ML IV (13:30)
[2021-07-10] MEDS: ondansetron 2 mg/ML SDV 2 mL 4 MG IVP (13:30)
[2021-07-10 13:41] LABS: Eosinophils % 0.2 %; Hematocrit 34.7 % (37.0-47.0); Hemoglobin 10.8 g/dL (11.5-15.3); Lymphocytes % 33.1 %; Mean Corpuscular HGB Conc 31.1 g/dL (30.0-36.0); Mean Corpuscular Hemoglobin 24.4 pg (28.0-34.0); Mean Corpuscular Volume 78.3 fl (81-99); Monocytes # 0.3 10^3/uL (0.2-0.9); Monocytes % 5.3 %; Neutrophils # 3.67 10^3/uL (1.8-7.7); Neutrophils % 61.2 %; Nucleated Red Blood Cells % 0 %; Platelet Count 237 10^3/cmm (130-400); Red Blood Count 4.43 10^6/uL (4.1-5.3); Red Cell Distribution Width 15.8 % (12.1-15.1)
[2021-07-10 13:44] LABS: HCG Qualitative Urine. Negative (Negative)
[2021-07-10 14:07] LABS: ABG PH Result 7.47 (7.35-7.45); Arterial Blood Gas Hematocrit 35.7 % (37-47); Blood Gas Allen Test Pos; Blood Gas Sample Site Radial, right; Blood Gas Sample Type Arterial; HCO3 ABG 26.7 mmol/L (22-26); PO2 ABG 49.6 mmHg (80.0-100.0)
[2021-07-10 14:10] LABS: Lactate (Lactic Acid level) 1.5 mmol/L (0.5-2.2)
[2021-07-10 14:18] LABS: Procalcitonin 0.09 ng/mL (0-0.5); Thyroid Stimulating Hormone 3.28 uIU/mL (0.27-4.20)
[2021-07-10 14:29] LABS: Alanine Aminotransferase 16 U/L (0-33); Albumin Level 3.1 g/dL (3.5-5.2); Alkaline Phosphatase 80 IU/L (35-105); Anion Gap 17.7 (5-19); Aspartate Amino Transferase 44 U/L (0-32); Blood Urea Nitrogen 5 mg/dL (6-20); C Reactive Protein 72.3 mg/L (0.0-4.9); Calcium 7.5 mg/dL (8.5-10.5); Carbon Dioxide 22 mmol/L (22-29); Chloride 101 mmol/L (98-107); Globulin 3.3 g/dL (1.3-4.6); Glomerular Filtration Rate 83.7 mL/min (90-130); Glucose 88 mg/dL (65-115); Osmolality Calculated 281 mOsm/kg (285-295); Potassium 3.7 mmol/L (3.5-5.1); Sodium 137 mmol/L (136-145); Total Bilirubin 0.2 mg/dL (0.15-1.2); Total Protein 6.4 g/dL (6.6-8.7)
[2021-07-10 14:33] VITALS: O2SAT 94
[2021-07-10 15:10] LABS: Blood Urine Neg (Negative); Glucose Urine UA Norm (Normal); Ketones Urine Negative (Negative); Protein Urine Trace (Negative); Urine Appearance Clear (CLEAR); Urine Color Yellow (Yellow); pH Urine 5 (5-7)
[2021-07-10 15:11] LABS: Add Urine Culture? No; Add Urine Microscopic? YES; Bacteria Urine 3+ /hpf; Bilirubin Urine 1+ (Negative); Leukocyte Esterase Urine Negative (Negative); Nitrate Urine Negative (Negative); Squamous Epithelial Cell Urine 15-25 /hpf (0-5); Urobilinogen Urine 4 mg/dL (Negative); WBC Urine 0-4 /hpf (0-5)
[2021-07-10] MEDS: metoclopramide 5 mg/mL SDV 2 mL 10 MG IVP (15:21)
[2021-07-10 15:58] LABS: D Dimer 0.68 ug/mIFEU (0-0.59)
--- NOTE | 2021-07-10 16:06 | CTR_ITS ---
PROCEDURE INFORMATION: Exam: CTA Chest With Contrast Exam date and time: 07/10/2021 4:06 PM Age: 31 years old Clinical indication: Shortness of breath; Prior surgery; Surgery type: Gb; Patient HX: Covid+; Additional info: SOB, hypoxemia, elevated ddimer TECHNIQUE: Imaging protocol: Computed tomographic angiography of the chest with contrast. 3D rendering (Not supervised by radiologist): MIP and/or 3D reconstructed images were created by the technologist. Radiation optimization: All CT scans at this facility use at least one of these dose optimization techniques: automated exposure control; mA and/or kV adjustment per patient size (includes targeted exams where dose is matched to clinical indication); or iterative reconstruction. Contrast material: OMNI 350; Contrast volume: 95 ml; Contrast route: INTRAVENOUS (IV); COMPARISON: CR XR chest 1V portable [id number] 07/10/2021 1:31 PM RADIATION DOSE METRICS: Total DLP (mGy-cm): 583.92 FINDINGS: Pulmonary arteries: Normal. No pulmonary emboli. Aorta: Unremarkable. No aortic aneurysm. No aortic dissection. Lungs: Diffuse bilateral lung circumscribed interstitial densities COVID-19 cannot be ruled out. Pleural spaces: Unremarkable. No pneumothorax. No pleural effusion. Heart: Unremarkable. No cardiomegaly. No pericardial effusion. Lymph nodes: Unremarkable. No enlarged lymph nodes. Bones/joints: Unremarkable. No acute fracture. Soft tissues: Unremarkable. CT/CT angio chest PE protcl [id number] IMPRESSION: 1. Negative for pulmonary embolism. 2. Diffuse circumscribed bilateral interstitial lung densities COVID-19 not ruled out. 3. Otherwise negative examination
[2021-07-10 16:25] VITALS: PULSE 101; O2SAT 90
[2021-07-10 18:06] VITALS: PULSE 96; O2SAT 93
[2021-07-10] MEDS: iohexol 350 mg/mL 100 mL Btl IV (18:24)
[2021-07-10 19:16] VITALS: O2SAT 80; O2SAT 88; O2SAT 89
== END 2021-07-10 22:10 | disposition home or self-care (01) ==
PROVIDERS: Emergency Provider Emergency Medicine; PCP Pediatrics
DX: U07.1 COVID-19 (principal); R09.02 Hypoxemia
CPT/HCPCS: 36600; 71045; 71275; 80053; 81001; 81025; 82803; 83605; 84145; 84443; 85025; 85378; 86140; 96361; 96374; 96375; 99284; J2405; J2765; J7040; Q9967

== ENCOUNTER 2021-07-25 12:24 | Emergency (ER) | payer BC, MEDICAID, SELFPAY ==
[2021-07-25 12:46] VITALS: BP 117/77; PULSE 87; RESP 16; TEMP 36.7; O2SAT 94
--- NOTE | 2021-07-25 12:57 | XRR_ITS ---
PROCEDURE INFORMATION: Exam: XR Chest Exam date and time: 07/25/2021 12:57 PM Age: 31 years old Clinical indication: Pain with cough. TECHNIQUE: Imaging protocol: XR of the chest. Views: 2 views. COMPARISON: CR XR chest 2V* [id number] 07/24/2021 4:11 PM FINDINGS: Lungs: Low lung volumes. No pulmonary consolidation. Pleural spaces: No pleural effusion. No pneumothorax. Heart/Mediastinum: The cardiac silhouette is unremarkable. No gross evidence of pneumomediastinum. Bones/joints: No gross fracture. XR/XR chest 2V insp/exp [id number] IMPRESSION: No acute cardiopulmonary abnormality identified.
--- NOTE | 2021-07-25 14:00 | ED_ITS ---
HPI - Back Pain/Injury General: Chief Complaint: Back Pain/Injury Stated Complaint: Severe pain in back Time Seen by Provider: 07/25/21 12:55 History of Present Illness: HPI Narrative: Patient states that that she has pain in her back when coughing. Recently had Covid. Patient seen another provider and she said they did not give her any pain medicine. Patient says hurts on the right side when coughing hard. MD elicited complaint: back pain Pertinent past history: prior back pain Onset (ago): hour(s) Timing: intermittent Severity: mild Similar Symptoms Previously: No Quality: sharp Location: right upper back Radiation: none Exacerbating factors: coughing/sneezing Relieving factors: immobilization Context: other (While coughing) Associated symptoms: Reports no associated symptoms; Deny abdominal pain, chills, fever(s), nausea or vomiting Review of Systems Const: Denies: fever(s), chills or body aches Eyes: Denies: change in vision or blurry vision ENMT: Denies: throat pain or nasal congestion Card: Denies: chest pain or dyspnea on exertion Resp: Denies: dyspnea, productive cough or non-productive cough GI: Denies: abdominal pain, nausea or vomiting Musc: Reports: other (Rib pain right side with coughing); Denies: extremity pain Skin/Breast: Denies: rash Neuro: Denies: headache(s) Psych: Denies: anxiety or depression Zbigniew/Lymph: Denies: easy bruising PFS ED PFSH: Medical History (Updated 07/25/21 @ 13:19 by NED Jack) GERD (gastroesophageal reflux disease) Surgical History History of surgical removal of ganglion cyst Hx of section Hx of cholecystectomy Family History Mother Diabetes Hypertension Father Diabetes CAD (coronary artery disease) Social History Smoking and tobacco status: never smoked Female Reproductive History: Date of last menstrual period: 08/09/19 Physical Exam Const: COMMON NORMALS: no acute distress, average body habitus and patient oriented x3 HENMT: COMMON NORMALS: normocephalic HEAD & SCALP: normal to inspection and normocephalic FACE & SINUS: normal facial exam Eye: COMMON NORMALS: conjunctivae normal GENERAL EYE: appearance normal, both eyes and all related structures CONJUNCTIVA: Yes conjunctivae normal Neck/C-Spine: COMMON NORMALS: no JVD Chest: COMMONS NORMALS: normal inspection of the chest CHEST: Yes localized rib tenderness with anteroposterior compression Location: 8th rib, 9th rib and 10th rib Resp: COMMON NORMALS: normal respiratory effort and clear to auscultation bilaterally AUSCULTATION: clear to auscultation bilaterally Cardio: COMMON NORMALS: no JVD, regular rate and regular rhythm RATE: regular rate RHYTHM: regular rhythm GI: COMMON NORMALS: Normal to inspection, nondistended, normoactive bowel sounds present Extremity: COMMON NORMALS: normal to inspection and full ROM Neuro: COMMON NORMALS: patient oriented x3 Course Vital Signs: Vital signs: Vital Signs Temperature 98.1 F 07/25/21 12:46 Pulse Rate 87 07/25/21 12:46 Respiratory Rate 16 07/25/21 12:46 Blood Pressure 117/77 07/25/21 12:46 Pulse Oximetry 94 07/25/21 12:46 Discharge Plan Discharge Patient Disposition: Home Clinical Impression: Pain in rib Condition: Stable Prescriptions: New tramadol 50 mg tablet 50 mg PO TID PRN (Reason: pain) Qty: 7 RF: 0 No Action Sprintec (28) 0.25-35 mg-mcg Tablet 1 tab PO DAILY RF: 0 NyQuil 7.5-60-30-1,000 mg/30 mL Liquid 30 ml PO Q6H PRN (Reason: Cold Symptoms) RF: 0 Prilosec 40 mg Capsule,Delayed Release(Dr/Ec) 40 mg PO QAM RF: 0 Mobic 7.5 mg Tablet 7.5 mg PO DAILY PRN (Reason: unknown) RF: 0 Tessalon Perles 100 mg Capsule 100 mg PO Q8H PRN (Reason: Cough) RF: 0 Dayquil Cold And Flu 30 ml PO Q6H PRN (Reason: Cold Symptoms) RF: 0 acetaminophen [Tylenol Extra Strength] 500 mg Tablet 1,000 mg PO Q4H PRN (Reason: Pain) RF: 0 levothyroxine 25 mcg Tablet 25 mcg PO QAM RF: 0 ibuprofen 800 mg tablet 800 mg PO Q8H PRN (Reason: pain) Qty: 30 RF: 0 Discharge Orders: Discharge ED (Routine); Ordered 07/25/21 Ordered By: Gwyn Gorman Referrals: Stacy Suggs MD [Primary Care Provider] - Discharge Diet: Usual diet Discharge Activity: Increase activity as tolerated Activity Restrictions/Additional Instructions: Follow-up with medical provider as directed. Take medications as prescribed. Return to the ER or your medical provider if condition worsens. Please read and understand discharge instructions. If any questions ask please. 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
== END 2021-07-25 13:46 | disposition home or self-care (01) ==
PROVIDERS: Emergency Provider Nurse Practitioner Family; PCP Pediatrics
DX: R07.81 Pleurodynia (principal); R05.9 Cough, unspecified; Z86.16 Personal history of COVID-19
CPT/HCPCS: 71046

== ENCOUNTER 2021-08-01 18:56 | Emergency (ER) | payer BC, MEDICAID, SELFPAY ==
[2021-08-01 19:12] VITALS: BP 137/87; PULSE 116; RESP 20; TEMP 36.8; O2SAT 95; BMI 61.0
--- NOTE | 2021-08-01 19:14 | XRR_ITS ---
PROCEDURE INFORMATION: Exam: XR Chest Exam date and time: 08/01/2021 7:14 PM Age: 31 years old Clinical indication: Chest wall pain; Additional info: Cp TECHNIQUE: Imaging protocol: XR of the chest. Views: 1 view. COMPARISON: CR XR chest 2V insp/exp [id number] 07/25/2021 1:02 PM FINDINGS: Lungs: Unremarkable. No consolidation. Pleural spaces: Unremarkable. No pleural effusion. No pneumothorax. Heart/Mediastinum: Unremarkable. No cardiomegaly. Bones/joints: Unremarkable. XR/XR chest 1V portable [id number] IMPRESSION: No acute findings.
--- NOTE | 2021-08-01 19:14 | ECG_ITS ---
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 Measurements Intervals [place] Rate: 114 P: 6 ME: 136 QRS: 6 QRSD: 80 T: 19 QT: 300 QTc: 414 Interpretive Statements SINUS TACHYCARDIA ABNORMAL RHYTHM ECG Compared to ECG 06/19/2019 11:04:41 Sinus rhythm no longer present Electronically Signed On 08-01-2021 21:55:57 TALENT MANAGER by Jeff Carlin M.D. [id number]
[2021-08-01] MEDS: TRAMadol 50 mg Tablet PO (22:43)
--- NOTE | 2021-08-01 23:21 | W.ED.CHESTPA ---
HPI - Chest Pain General: Chief Complaint: Chest Pain Stated Complaint: Chest pains because of muscles Time Seen by Provider: 08/01/21 22:09 History of Present Illness: HPI narrative: Patient complains about rib pain. Patient was getting better and she started coughing again and then she hurt her rib again. Said it hurts in the same spot as the last time when I saw her and it hurts when she takes a deep breath or moves around. She said that she thought she was getting much better on today. complaint: other (Rib pain) Associated symptoms: Reports no associated symptoms; Deny abdominal pain, dyspnea, fever(s), nausea or vomiting Review of Systems Narrative: Patient states that she has rib pain left side that she has had for the last 3 to 4 weeks she said it got much better with the tramadol would like some tramadol again because that did help quite a bit. States she hurt it again when coughing today. She said her cough has improved. Const: Denies: fever(s), chills or body aches Eyes: Denies: change in vision or blurry vision ENMT: Denies: throat pain or nasal congestion Card: Denies: chest pain or dyspnea on exertion Resp: Denies: dyspnea, productive cough or non-productive cough GI: Denies: abdominal pain, nausea or vomiting Musc: Denies: extremity pain Skin/Breast: Denies: rash Neuro: Denies: headache(s) Psych: Denies: anxiety or depression Zbigniew/Lymph: Denies: easy bruising PFSH ED PFSH: Medical History (Updated 08/01/21 @ 22:09 by NED Jack) GERD (gastroesophageal reflux disease) Surgical History History of surgical removal of ganglion cyst Hx of section Hx of cholecystectomy Family History Mother Diabetes Hypertension Father Diabetes CAD (coronary artery disease) Social History Smoking and tobacco status: never smoked Female Reproductive History: Date of last menstrual period: 07/17/21 Physical Exam Const: COMMON NORMALS: no acute distress, average body habitus and patient oriented x3 HENMT: COMMON NORMALS: normocephalic HEAD & SCALP: normal to inspection and normocephalic FACE & SINUS: normal facial exam Eye: COMMON NORMALS: conjunctivae normal GENERAL EYE: appearance normal, both eyes and all related structures CONJUNCTIVA: Yes conjunctivae normal Neck/C-Spine: COMMON NORMALS: no JVD Chest: CHEST: Yes localized rib tenderness with anteroposterior compression (Left side) Location: 8th rib and 9th rib Resp: COMMON NORMALS: normal respiratory effort and clear to auscultation bilaterally AUSCULTATION: clear to auscultation bilaterally Cardio: COMMON NORMALS: no JVD, regular rate and regular rhythm RATE: regular rate RHYTHM: regular rhythm GI: COMMON NORMALS: Normal to inspection, nondistended, normoactive bowel sounds present Extremity: COMMON NORMALS: normal to inspection and full ROM Neuro: COMMON NORMALS: patient oriented x3 Course Vital Signs: Vital signs: Vital Signs Temperature 98.2 F 08/01/21 19:12 Pulse Rate 116 H 08/01/21 19:12 Respiratory Rate 20 H 08/01/21 19:12 Blood Pressure 137/87 08/01/21 19:12 Pulse Oximetry 95 08/01/21 19:12 MDM - Chest Pain MDM Narrative: Medical decision making narrative: Chest x-ray was normal. I evaluated patient waiting room she has tenderness in the same spot I saw her last time with palpation. She said it was aggravated today when she coughed really hard. No other complaints or problems. She thought she was getting better has not had any fever no positive sputum production abdominal pain or other problems. Patient had tramadol help quite a bit. Said her cough has improved. Patient states she will follow up with her PCP. Discharge Plan Discharge Patient Disposition: Home Clinical Impression: Pain in rib Condition: Stable Prescriptions: New tramadol 50 mg tablet 50 mg PO TID PRN (Reason: pain) Qty: 14 RF: 0 No Action Sprintec (28) 0.25-35 mg-mcg Tablet 1 tab PO DAILY RF: 0 NyQuil 7.5-60-30-1,000 mg/30 mL Liquid 30 ml PO Q6H PRN (Reason: Cold Symptoms) RF: 0 Prilosec 40 mg Capsule,Delayed Release(Dr/Ec) 40 mg PO QAM RF: 0 Mobic 7.5 mg Tablet 7.5 mg PO DAILY PRN (Reason: unknown) RF: 0 Tessalon Perles 100 mg Capsule 100 mg PO Q8H PRN (Reason: Cough) RF: 0 Dayquil Cold And Flu 30 ml PO Q6H PRN (Reason: Cold Symptoms) RF: 0 acetaminophen [Tylenol Extra Strength] 500 mg Tablet 1,000 mg PO Q4H PRN (Reason: Pain) RF: 0 levothyroxine 25 mcg Tablet 25 mcg PO QAM RF: 0 ibuprofen 800 mg tablet 800 mg PO Q8H PRN (Reason: pain) Qty: 30 RF: 0 tramadol 50 mg tablet 50 mg PO TID PRN (Reason: pain) Qty: 7 RF: 0 Discharge Orders: Discharge ED (Routine); Ordered 08/01/21 Ordered By: Gwyn Gorman Referrals: Stacy Suggs MD [Primary Care Provider] - Discharge Diet: Usual diet Discharge Activity: Increase activity as tolerated Patient Instructions: Opioid Safety Activity Restrictions/Additional Instructions: Up your family medical provider soon as possible. Use medicine as prescribed. 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
== END 2021-08-01 22:45 | disposition home or self-care (01) ==
PROVIDERS: Emergency Provider Nurse Practitioner Family; PCP Pediatrics
DX: R07.81 Pleurodynia (principal)
CPT/HCPCS: 71045; 93005; 99283

== ENCOUNTER → 2021-08-27 11:17 | Outpatient (BNVA) | payer BC, MEDICAID, SELFPAY | PROVIDERS: PCP Pediatrics; Visit Provider Obstetrics & Gynecology | DX: Z30.017 Encounter for initial prescription of implantable subdermal contraceptive (principal) | CPT/HCPCS: 81025 ==

== ENCOUNTER 2022-01-15 06:31 | Outpatient (CLI) | payer BC, MEDICAID, SELFPAY ==
--- NOTE | 2022-01-15 | US_ITS ---
WS: [id number] TRANSVAGINAL PELVIC ULTRASOUND HISTORY: PCOS COMPARISON: None available. Uterus: 8.1 cm x 4.0 cm x 3.4 cm. Normal size uterus. No fibroid or mass. Endometrium: 0.2 cm. Normal homogeneity. Right ovary: 2.0 cm x 2.0 cm x 1.4 cm. Normal size and vascularity, no cystic or solid masses. Left ovary: 2.3 cm x 1.5 cm x 2.5 cm. Normal size and vascularity, no cystic or solid masses. No free fluid. US/US transvaginal [id number] IMPRESSION: 1. Normal transvaginal pelvic ultrasound. 2. No ultrasound evidence for polycystic ovarian disease.
== END 2022-01-15 06:32 | disposition home or self-care (01) ==
LOC: RAD 06:33
PROVIDERS: PCP Pediatrics; Visit Provider Family Medicine
DX: E28.2 Polycystic ovarian syndrome (principal)
CPT/HCPCS: 76830

== ENCOUNTER 2022-11-01 14:22 | Emergency (ER) | payer BC, MEDICAID, SELFPAY ==
[2022-11-01 14:27] VITALS: BP 138/93; PULSE 89; RESP 16; TEMP 36.7; O2SAT 96
--- NOTE | 2022-11-01 14:44 | W.ED.EYEPROB ---
HPI - Eye Problem General: Chief complaint: Eye Problems Stated complaint: eye problems Time Seen by Provider: 11/01/22 14:30 Source: patient Mode of arrival: ambulatory Limitations: no limitations History of Present Illness: Patient is a 32-year-old female presents to ED today with complaint of an itchy and irritating right eye. Patient states symptoms of been intermittent over the past few months and she feels like they are attributed to an ingrown upper eyelash that she has visualized. She has no foreign body sensation. She has not noticed any drainage to the eye. She states sometimes the eye appears red but states this is most likely this is from her rubbing it. Denies eye pain. No visual changes. chief complaint: other (eye itching/irritating) Onset (ago): month(s) Duration: intermittent Location: right eye Eye Symptoms: itching Mechanism: none Severity: mild Associated symptoms: Reports no associated symptoms Related Data: Patient tetanus UTD: Yes Review of Systems Eyes: Denies: change in vision, blurry vision, blind spots, photophobia, yellow eyes, dry eyes, floaters or seeing flashes PFSH ED PFSH: Medical History (Updated 11/01/22 @ 16:07 by ANNE MARIE Frank) GERD (gastroesophageal reflux disease) Surgical History History of surgical removal of ganglion cyst Hx of section Hx of cholecystectomy Family History Mother Diabetes Hypertension Heart disease Hyperlipidemia Father Diabetes CAD (coronary artery disease) Hypertension Clotting disorder Denies family history of Colon cancer Ovarian cancer Breast cancer Anesthesia complication Bleeding disorder Uterine cancer Thyroid condition Stroke Physical Exam Const: COMMON NORMALS: no acute distress, patient oriented x3, no limitations and alert NUTRITIONAL APPEARANCE: obese morbidly obese ORIENTATION/CONSCIOUSNESS: Yes awake, Yes oriented to person, Yes oriented to place and Yes oriented to time Eye: COMMON NORMALS: Equal, round and reactive pupils present, EOMs intact bilaterally, conjunctivae normal, no scleral icterus and normal visual espinoza by confrontation GENERAL EYE: appearance normal, both eyes and all related structures and normal light reflex VISUAL ACUITY: Yes acuity normal VISUAL ESPINOZA: No peripheral vision loss and No central vision loss ALIGNMENT: Yes alignment normal EYELID: eyelid abnormality (ingrown upper eyelash) CONJUNCTIVA: Yes conjunctivae normal SCLERA: sclerae normal CORNEA: Yes corneas normal and fluorescein used (no stain uptake noted) PUPIL: Yes Equal, round and reactive pupils present DIRECT OPHTHALMOSCOPY: Yes normal light reflex OTHER: ingrown hair was easily teased out and removed Neuro: COMMON NORMALS: patient oriented x3 SENSORIUM/ORIENTATION: Yes alert, Yes oriented to person, Yes oriented to place and Yes oriented to time Course Vital Signs: Vital signs: Vital Signs Temperature 98.0 F 11/01/22 14:27 Pulse Rate 89 11/01/22 14:27 Respiratory Rate 16 11/01/22 14:27 Blood Pressure 138/93 11/01/22 14:27 Pulse Oximetry 96 11/01/22 14:27 Oxygen Delivery Me thod 11/01/22 14:27 MDM - Eye Problem Medical Decision Making Eye exam fairly benign other than an ingrown eyelash to her upper lid that was easily teased out and removed. Recommend if this does not help with symptoms then I would like her to follow up with PCP or eye doctor. She is agreeable to this plan. Symptoms have been present intermittently for months and I have no concerns for emergent etiology for her eye irrigation. Discharge Plan Discharge Patient Disposition: Home Clinical Impression: Ingrowing eyelash of upper lid Condition: Stable Prescriptions: No Action fluticasone propion-salmeterol [Advair Diskus] 100-50 mcg/dose blister with device 1 inh inhalation BID levofloxacin 750 mg tablet 750 mg PO DAILY 7 Days Qty: 7 0RF clotrimazole 1 % cream 1 applic topical BID 28 Days Qty: 30 0RF fluconazole 150 mg tablet 150 mg PO .weekly 14 Days Qty: 2 0RF Rx Instructions: Take once weekly for 2 weeks Prilosec 40 mg Capsule,Delayed Release(Dr/Ec) 40 mg PO QAM Mobic 7.5 mg Tablet 7.5 mg PO DAILY PRN (Reason: unknown) levothyroxine 25 mcg Tablet 25 mcg PO QAM Discharge Orders: Discharge ED (Routine); Ordered 11/01/22 Ordered By: Amina Whitehead Referrals: Stacy Del Valle MD [Primary Care Provider] - Coding Level of Care Code ED Piano Teacher for Salinag Markel
[2022-11-01] MEDS: eye irrigation 30 mL Btl EYE-RIGHT (15:23)
[2022-11-01] MEDS: tetracaine 0.5% Op Soln 4 mL Btl 1 DROP EYE-RIGHT (15:24)
[2022-11-01] MEDS: fluorescein 1 mg Strip EYE-RIGHT (15:24)
== END 2022-11-01 16:52 | disposition home or self-care (01) ==
PROVIDERS: Emergency Provider Physician Assistant; PCP Pediatrics
DX: H02.051 Trichiasis without entropion right upper eyelid (principal)
CPT/HCPCS: 99283

== ENCOUNTER 2022-12-16 21:42 | Emergency (ER) | payer BC, MEDICAID, SELFPAY ==
[2022-12-16 22:01] VITALS: BP 120/83; PULSE 98; RESP 16; TEMP 37.1; O2SAT 98; BMI 60.8
--- NOTE | 2022-12-16 22:08 | ED_ITS ---
HPI - Extremity Problem General: Chief complaint: Extremity Problem,Nontraumatic Stated complaint: lump in right arm Time Seen by Provider: 12/16/22 22:07 History of Present Illness: 32-year-old female comes in with a tender bump to her right forearm. Patient does not recall any injury and reports noticing it only today. Patient came in for evaluation due to concern of abnormality. Patient moves extremity without any difficulty. Area is only tender to touch. Patient has a history of arthritis, and inclusion of cysts. Associated symptoms: Deny chest pain or fever(s) Review of Systems General: Reports: 10 or more systems reviewed and unremarkable except in HPI and below Const: Denies: fever(s) Card: Denies: chest pain Resp: Denies: dyspnea GI: Denies: nausea or vomiting : Denies: difficulty voiding Musc: Reports: extremity pain Skin/Breast: Reports: other (Tender lump right forearm) Neuro: Denies: headache(s) [facility] ED PFSH: Medical History (Updated 12/16/22 @ 22:14 by NED Holcomb) GERD (gastroesophageal reflux disease) Surgical History History of surgical removal of ganglion cyst Hx of section Hx of cholecystectomy Family History Mother Diabetes Hypertension Heart disease Hyperlipidemia Father Diabetes CAD (coronary artery disease) Hypertension Clotting disorder Denies family history of Colon cancer Ovarian cancer Breast cancer Anesthesia complication Bleeding disorder Uterine cancer Thyroid condition Stroke Physical Exam Const: COMMON NORMALS: alert HENMT: COMMON NORMALS: normocephalic HEAD & SCALP: normocephalic Neck/C-Spine: COMMON NORMALS: no lymphadenopathy Resp: COMMON NORMALS: normal respiratory effort Back/Pelvis: COMMON NORMALS: thoracic and lumbar spine normal to inspection Extremity: RIGHT UPPER EXTREMITY: Yes lower arm (5 mm tender nodule with surrounding bruising) Right lower arm: Yes inspection, Yes palpation and Yes neurovascular exam Neuro: SENSORIUM/ORIENTATION: Yes alert Course Vital Signs: Vital signs: Vital Signs Temperature 98.7 F 12/16/22 22:01 Pulse Rate 98 12/16/22 22:01 Respiratory Rate 16 12/16/22 22:01 Blood Pressure 120/83 12/16/22 22:01 Pulse Oximetry 98 12/16/22 22:01 Oxygen Delivery Me thod Room Air 12/16/22 22:01 MDM - Extremity (Nontraumatic) Medical Decision Making 32-year-old female comes in today with a tender nodule to the right forearm. On exam we note an area of bruising distally to the lump and also some mild skin discoloration around the lump. The lump is a nodule but is approximately 5 mm. Normal range of motion of the extremity. Distal cap refill and sensation is intact. Differential diagnosis includes hematoma, superficial thrombophlebitis, lipoma, sarcoma. Suspect this is either a small hematoma or contusion. Recommended warm moist compresses to the area and have it reevaluated in 2 weeks. Recommend to return to the ER for worsening symptoms such as increasing extremity swelling and redness, high fever greater than 100.4, or new concerns. Discharge Plan Discharge Patient Disposition: Home Clinical Impression: Contusion of forearm, right Qualifiers: Encounter type: initial encounter Qualified Code(s): S50.11XA - Contusion of right forearm, initial encounter Condition: Stable Prescriptions: No Action fluticasone propion-salmeterol [Advair Diskus] 100-50 mcg/dose blister with device 1 inh inhalation BID levofloxacin 750 mg tablet 750 mg PO DAILY 7 Days Qty: 7 0RF clotrimazole 1 % cream 1 applic topical BID 28 Days Qty: 30 0RF fluconazole 150 mg tablet 150 mg PO .weekly 14 Days Qty: 2 0RF Rx Instructions: Take once weekly for 2 weeks Prilosec 40 mg Capsule,Delayed Release(Dr/Ec) 40 mg PO QAM Mobic 7.5 mg Tablet 7.5 mg PO DAILY PRN (Reason: unknown) levothyroxine 25 mcg Tablet 25 mcg PO QAM Discharge Orders: Discharge ED (Routine); Ordered 12/16/22 Ordered By: Lio Loving Referrals: Stacy Del Valle MD [Primary Care Provider] - Discharge Diet: Usual diet Discharge Activity: Increase activity as tolerated Patient Instructions: Contusion in Adults (ED) Activity Restrictions/Additional Instructions: Use warm compresses to the area to help with pain and resolution of bruising. Give acetaminophen or ibuprofen for pain. Activity as tolerated. Follow-up with primary care for further instructions. Make sure to have the area rechecked in 2 weeks. Return to ER for worsening symptoms such as increased redness and swelling, fever greater than 100.4, or new concerns. 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
== END 2022-12-16 22:40 | disposition home or self-care (01) ==
PROVIDERS: Emergency Provider Nurse Practitioner Family; PCP Pediatrics
DX: S50.11XA Contusion of right forearm, initial encounter (principal); X58.XXXA Exposure to other specified factors, initial encounter
CPT/HCPCS: 99282

== ENCOUNTER 2023-03-23 09:16 | Emergency (ER) | payer BC, MEDICAID, SELFPAY ==
[2023-03-23 09:24] VITALS: BMI 59.3
[2023-03-23 09:27] VITALS: BP 163/107; PULSE 89; RESP 16; TEMP 37.1; O2SAT 97
--- NOTE | 2023-03-23 09:33 | ED_ITS ---
HPI - Back Pain/Injury General: Chief Complaint: Back Pain/Injury Stated Complaint: lower back pain Time Seen by Provider: 03/23/23 09:17 Source: patient Mode of arrival: ambulatory Limitations: no limitations History of Present Illness: Patient is a 32-year-old female with history of morbid obesity who presents to the emergency department complaining of back pain onset 3 years. Patient states she has had chronic pain in the sacral region with sharp, shooting pains radiating down both legs. She states that she is constantly in pain since onset, and that she acutely exacerbated the pain while adjusting herself in a chair yesterday. She says she has had imaging on her back before, but has never received an MRI as she has not been able to obtain due to her body habitus. States she has seen Dr. Sawant who recommended the MRI but was told she was too large for our scanner here. She states that she takes meloxicam on a daily basis for her pain, but that has not been working. She denies any changes in bowel or bladder, or any numbness or other peripheral sensory changes. She denies any recent injury or trauma to her lower back. She denies any recent falls. She denies any urinary symptoms, chest pain, shortness of breath, or any other symptoms at this time. The pain does not radiate, and she states that she can feel it at rest and is worsened with movement. MD elicited complaint: back pain Pertinent past history: prior back pain Onset (ago): year(s) (3) Timing: constant Similar Symptoms Previously: Yes Location: sacrum Radiation: none Exacerbating factors: movement Relieving factors: none Associated symptoms: Deny abdominal pain, chills, difficulty walking, dysuria, fatigue, fever(s), nausea, syncope, urinary urgency or vomiting Treatments prior to arrival: NSAIDS Work related injury: No Review of Systems Const: Denies: fever(s), chills, body aches, fatigue or malaise Card: Denies: chest pain, palpitations, irregular heart rhythm, lightheadedness, syncope or dyspnea on exertion Resp: Denies: dyspnea, productive cough or pain on inspiration GI: Denies: abdominal pain, nausea, vomiting, heartburn or diarrhea : Denies: flank pain, difficulty voiding, dysuria, urinary frequency, urinary urgency or urinary hesitancy Musc: Reports: back pain; Denies: neck pain, extremity pain (Bilateral lower extremities), extremity swelling, joint pain, joint swelling or joint redness Skin/Breast: Denies: rash Neuro: Denies: headache(s), numbness in extremities, weakness in extremities, sensory changes or difficulty walking PFSH ED PFSH: Medical History GERD (gastroesophageal reflux disease) Surgical History History of surgical removal of ganglion cyst Hx of section Hx of cholecystectomy Family History Mother Diabetes Hypertension Heart disease Hyperlipidemia Father Diabetes CAD (coronary artery disease) Hypertension Clotting disorder Denies family history of Colon cancer Ovarian cancer Breast cancer Anesthesia complication Bleeding disorder Uterine cancer Thyroid condition Stroke Physical Exam Const: COMMON NORMALS: no acute distress, patient oriented x3, no limitations, alert and well nourished GENERAL APPEARANCE: cooperative NUTRITIONAL APPEARANCE: obese morbidly obese (BMI is 59.3) ORIENTATION/CONSCIOUSNESS: Yes awake HENMT: COMMON NORMALS: normocephalic and atraumatic HEAD & SCALP: normocephalic and atraumatic Neck/C-Spine: COMMON NORMALS: no meningeal signs Resp: COMMON NORMALS: normal respiratory effort and clear to auscultation bilaterally AUSCULTATION: clear to auscultation bilaterally Cardio: COMMON NORMALS: regular rate and regular rhythm RATE: regular rate RHYTHM: regular rhythm : COMMON NORMALS: Yes no CVA tenderness BLADDER/KIDNEY EXAM: Yes no CVA tenderness Back/Pelvis: COMMON NORMALS: no CVA tenderness and thoracic and lumbar spine normal to inspection THORACIC SPINE/UPPER BACK: No thoracic spinal tenderness, No paraspinal muscle tenderness and No paraspinal muscle spasm LUMBAR SPINE/LOWER BACK: No lumbar spinal tenderness, Yes paraspinal muscle tenderness, No paraspinal muscle spasm and Yes straight leg raise negative bilaterally PELVIS: Yes buttocks normal SACRUM: tenderness positive midline OTHER: Exam somewhat limited due to patient's body habitus Extremity: COMMON NORMALS: normal to inspection, no clubbing, cyanosis or edema, no calf tenderness and no pedal edema GENERAL: Yes normal exam except as noted Neuro: COMMON NORMALS: patient oriented x3, moves all extremities, no focal motor deficits, no sensory deficits noted and gait normal SENSORIUM/ORIENTATION: Yes alert MENINGEAL SIGNS: Yes no meningeal signs MOTOR EXAM: 5/5 motor strength present throughout OTHER: No distal neurovascular deficits Skin: COMMON NORMALS: no rashes or lesions noted GENERAL SKIN EXAM: no rashes or lesions noted Course Vital Signs: Vital signs: Vital Signs Temperature 98.8 F 03/23/23 09:27 Pulse Rate 89 03/23/23 09:27 Respiratory Rate 16 03/23/23 09:27 Blood Pressure 163/107 03/23/23 09:27 Pulse Oximetry 97 03/23/23 09:27 Oxygen Delivery Me thod Room Air 03/23/23 09:27 MDM - Back Pain/Injury Medical Decision Making This patient was seen and evaluated in the emergency department today for 3 years of chronic low back pain. The patient's main complaint has been the pain which was acutely exacerbated when she was adjusting herself in a chair. Examination revealed a morbidly obese female whose complaint was overall difficult to assess due to her body habitus. She has no acute neurologic compromise. No red flag signs given on her history. She was given a shot of Norflex and Toradol while in the emergency department, and it is instructed that she follow-up with primary care provider to arrange for an outpatient MRI although this will have to be done at a facility with a bariatric scanner as she has been told she is too large for our scanner at [facility]. I do not feel that she is in need of any imaging at this time due to the chronic and unchanged nature of her back pain. Patient agrees with plan for discharge home. Recommend she discontinue the meloxicam as she is reportedly not receiving any benefit from this medication. Discharge Plan Discharge Patient Disposition: Home Clinical Impression: Chronic low back pain Qualifiers: Back pain laterality: unspecified Sciatica presence: with sciatica Sciatica laterality: sciatica laterality unspecified Qualified Code(s): M54.40 - Lumbago with sciatica, unspecified side Condition: Stable Prescriptions: No Action fluticasone propion-salmeterol [Advair Diskus] 100-50 mcg/dose blister with device 1 inh inhalation BID PRN (Reason: unknown) omeprazole [Prilosec] 40 mg Capsule,Delayed Release(Dr/Ec) 40 mg PO QAM levothyroxine 25 mcg Tablet 25 mcg PO QAM Tylenol Ex Str Rapid Release 500 mg Tablet 1,000 mg PO Q6H PRN (Reason: Pain) meloxicam 7.5 mg tablet 7.5 mg PO DAILY PRN (Reason: Pain) Flonase Allergy Relief 50 mcg/actuation [place],Suspension 2 spray INTRANASAL DAILY PRN (Reason: Allergy Symptoms) olopatadine 0.2 % drops 1 drp ophthalmic (eye) BID Advil PM 200-38 mg Tablet 2 tab PO BEDTIME PRN (Reason: Sleep) levocetirizine 5 mg tablet 5 mg PO DAILY Kratom 4 tab PO DAILY PRN (Reason: Pain) Discharge Orders: Discharge ED (Routine); Ordered 03/23/23 Ordered By: Amina Whitehead Referrals: Ivon COVARRUBIAS,Stacy Khan MD [Primary Care Provider] - Activity Restrictions/Additional Instructions: As we discussed, you need to speak to your primary care provider about getting outpatient MRI, or referral to a facility with a bariatric scanner. 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
[2023-03-23] MEDS: orphenadrine 30 mg/mL Inj 2 mL 60 MG IM (10:25)
[2023-03-23] MEDS: ketorolac 60 mg/2 mL INJ IM (10:25)
== END 2023-03-23 11:13 | disposition home or self-care (01) ==
PROVIDERS: Emergency Provider Physician Assistant; PCP Family Medicine
DX: M54.40 Lumbago with sciatica, unspecified side (principal); G89.29 Other chronic pain
CPT/HCPCS: 96372; 99284; J1885; J2360

== ENCOUNTER 2023-10-18 19:38 | Emergency (ER) | payer BC, MEDICAID, SELFPAY ==
[2023-10-18 19:40] VITALS: BP 114/85; PULSE 85; RESP 15; TEMP 36.7; O2SAT 96; BMI 61.4
--- NOTE | 2023-10-18 19:40 | XRR_ITS ---
PROCEDURE INFORMATION: Exam: XR Chest Exam date and time: 10/18/2023 7:44 PM Age: 33 years old Clinical indication: Chest pressure; Patient HX: C/O chest pain TECHNIQUE: Imaging protocol: Radiologic exam of the chest. Views: 1 view. COMPARISON: CR XR chest 1V portable [id number] 08/01/2021 7:42 PM FINDINGS: Lungs: Unremarkable. No consolidation. Pleural spaces: Unremarkable. No pleural effusion. No pneumothorax. Heart/Mediastinum: Unremarkable. No cardiomegaly. Bones/joints: Unremarkable. XR/XR chest 1V portable [id number] IMPRESSION: No acute findings.
--- NOTE | 2023-10-18 19:42 | ECG_ITS ---
[facility] Test Date: 2023-10-18 Pat Name: Debbie Mijares Department: Room: Gender: Female Bureau Director: : 1990 Requested By: Lio Maldonado Order Number: [id number] Violet MD: Yajaira Quispe M.D. Measurements Intervals [place] Rate: 76 P: 169 IA: 178 QRS: 164 QRSD: 96 T: 166 QT: 366 QTc: 414 Interpretive Statements SINUS RHYTHM ARM LEADS REVERSED [INVERTED P AND QRS IN I] No previous ECG available for comparison Electronically Signed On 10-18-2023 21:44:08 CDT by Yajaira Quispe M.D. [id number] f
--- NOTE | 2023-10-18 19:53 | ED_ITS ---
HPI - Chest Pain 2 General: Chief Complaint: Chest Pain Stated Complaint: CP Time Seen by Provider: 10/18/23 19:40 History of Present Illness: 33-year-old female comes in today with c omplaints of chest discomfort. Patient reports she was coming home from grocery shopping when she started feeling some discomfort in her chest. Patient was really concerned she may be having a heart attack because her father from that. Patient appears nontoxic. Patient is obese. Patient takes medications for asthma and seasonal allergies. Patient endorses chronic low back pain. Review of Systems 2 General: Reports: 10 or more systems reviewed and unremarkable except in HPI and below PFSH ED 2 PFSH: Medical History (Updated 10/18/23 @ 21:17 by NED Holcomb) GERD (gastroesophageal reflux disease) Surgical History Hx of section Hx of cholecystectomy History of surgical removal of ganglion cyst Family History Mother Diabetes Hypertension Heart disease Hyperlipidemia Father Diabetes CAD (coronary artery disease) Hypertension Clotting disorder Denies family history of Colon cancer Ovarian cancer Breast cancer Anesthesia complication Bleeding disorder Uterine cancer Thyroid condition Stroke Physical Exam 2 Const: COMMON NORMALS: alert HENMT: COMMON NORMALS: normocephalic HEAD & SCALP: normocephalic Neck/C-Spine: COMMON NORMALS: full ROM Resp: COMMON NORMALS: normal respiratory effort and clear to auscultation bilaterally AUSCULTATION: clear to auscultation bilaterally Cardio: COMMON NORMALS: regular rate and regular rhythm RATE: regular rate RHYTHM: regular rhythm GI: COMMON NORMALS: Soft to palpation PALPATION: Yes Soft to palpation Back/Pelvis: COMMON NORMALS: thoracic and lumbar spine normal to inspection Extremity: COMMON NORMALS: full ROM Neuro: SENSORIUM/ORIENTATION: Yes alert Skin: COMMON NORMALS: turgor normal GENERAL SKIN EXAM: turgor normal Course 2 Vital Signs: Vital signs: Vital Signs Temperature 98.1 F 10/18/23 19:40 Pulse Rate 79 10/18/23 21:31 Respiratory Rate 16 10/18/23 21:31 Blood Pressure 160/94 10/18/23 21:31 Pulse Oximetry 98 10/18/23 21:31 Oxygen Delivery Me thod Room Air 10/18/23 21:15 MDM - Chest Pain Medical Decision Making Patient comes in today for concerns of chest pain. On exam patient appears nontoxic. Lungs are clear to auscultation. Heart rates regular. Skin is warm and dry. Vital signs are normal. Differential diagnosis includes not limited to anxiety, angina, GERD, gastritis, panic disorder, pancreatitis. Labs noted normal blood count, normal CMP. Troponin 2-hour delta was less than 10 and repeat EKG showed no changes. Urinalysis was unremarkable. Believe patient most likely had a episode of gastric pain followed by anxiety related health. Recommended patient follow-up with primary care for further evaluation and treatment. Patient reported understanding and agreed to plan. Lab Data 10/18/23 19:53 10/18/23 19:53 Radiology Impressions Chest X-Ray 10/18/23 19:40 IMPRESSION: No acute findings. Laboratory Results WBC 10.00 10^3/uL (3.29-11.43) 10/18/23 19:53 RBC 4.43 10^6/uL (3.85-5.65) 10/18/23 19:53 Hgb 11.80 g/dL (11.27-16.99) 10/18/23 19:53 Hct 36.5 % (36-47) 10/18/23 19:53 MCV 82.4 fl (85-98) L 10/18/23 19:53 MCH 26.6 pg (27-33) L 10/18/23 19:53 MCHC 32.3 g/dL (30-55) 10/18/23 19:53 RDW 14.1 % (12.1-15.1) 10/18/23 19:53 Plt Count 319 10^3/cmm (157-399) 10/18/23 19:53 MPV 10.6 fL (7.4-10.4) H 10/18/23 19:53 Neut % (Auto) 59.3 % 10/18/23 19:53 Lymph % (Auto) 30.4 % 10/18/23 19:53 [place] % (Auto) 7.1 % 10/18/23 19:53 Eos % (Auto) 2.4 % 10/18/23 19:53 Baso % (Auto) 0.4 % 10/18/23 19:53 Neut # (Auto) 5.93 10^3/uL (1.8-7.7) 10/18/23 19:53 Lymph # (Auto) 3.0 10^3/uL (0.8-4.8) 10/18/23 19:53 [place] # (Auto) 0.7 10^3/uL (0.2-0.9) 10/18/23 19:53 Eos # (Auto) 0.2 10^3/uL (0.0-0.8) 10/18/23 19:53 Baso # (Auto) 0.0 10^3/uL (0.0-0.1) 10/18/23 19:53 Nucleated RBC % (auto) 0 % 10/18/23 19:53 Nucleated RBCs # 0.0 /100WBC 10/18/23 19:53 Sodium 137 mmol/L (136-145) 10/18/23 19:53 Potassium 3.6 mmol/L (3.5-5.1) 10/18/23 19:53 Chloride 103 mmol/L (98-107) 10/18/23 19:53 Carbon Dioxide 25 mmol/L (22-29) 10/18/23 19:53 Anion Gap 12.6 (5-19) 10/18/23 19:53 BUN 7 mg/dL (6-20) 10/18/23 19:53 Creatinine 0.7 mg/dL (0.5-0.9) 10/18/23 19:53 GFR Calculation 96.4 mL/min (90-130) 10/18/23 19:53 Glucose 79 mg/dL (65-115) 10/18/23 19:53 Calculated Osmolality 281 mOsm/kg (285-295) L 10/18/23 19:53 Calcium 8.8 mg/dL (8.5-10.5) 10/18/23 19:53 Total Bilirubin 0.2 mg/dL (0.15-1.2) 10/18/23 19:53 AST 14 U/L (0-32) 10/18/23 19:53 ALT 9 U/L (0-33) 10/18/23 19:53 Alkaline Phosphatase 95 U/L (35-105) 10/18/23 19:53 Troponin T Baseline < 6 ng/L (0-10) 10/18/23 19:53 Troponin T 120 Minute 11.60 ng/L (0-10) H 10/18/23 21:23 Delta Troponin T 5.03238 ABS# (0-10) 10/18/23 21:23 Total Protein 6.7 g/dL (6.6-8.7) 10/18/23 19:53 Albumin 3.5 g/dL (3.5-5.2) 10/18/23 19:53 Globulin 3.2 g/dL (1.3-4.6) 10/18/23 19:53 HCG, Qual Negative (Negative) 10/18/23 19:53 Urine Color Yellow (Yellow) 10/18/23 20:48 Urine Appearance Hazy (CLEAR) A 10/18/23 20:48 Urine pH 7 (5-7) 10/18/23 20:48 Ur Specific [place] 1.010 (1.005-1.030) 10/18/23 20:48 Urine Protein Neg (Negative) 10/18/23 20:48 Urine Glucose (UA) Norm (Normal) 10/18/23 20:48 Urine Ketones 1+ (Negative) H 10/18/23 20:48 Urine Blood Neg (Negative) 10/18/23 20:48 Urine Nitrate Negative (Negative) 10/18/23 20:48 Urine Bilirubin Neg (Negative) 10/18/23 20:48 Urine Urobilinogen 1 mg/dL (Negative) H 10/18/23 20:48 Ur Leukocyte Esterase Trace (Negative) H 10/18/23 20:48 Urine RBC 0-4 /hpf (0-2) H 10/18/23 20:48 Urine WBC 5-10 /hpf (0-5) H 10/18/23 20:48 Ur Squamous Epith Cells 5-10 /hpf (0-5) H 10/18/23 20:48 Amorphous Sediment Trace /hpf 10/18/23 20:48 Urine Bacteria 1+ /hpf (NONE) H 10/18/23 20:48 Urine Mucus Trace /hpf 10/18/23 20:48 All radiology interpretation(s) finalized by discharge EKG Data EKG 1: I personally reviewed and interpreted this EKG as follows: EKG interpretation date: 10/18/23 EKG interpretation time: 19:50 Prior EKG tracings: not available for review Interpretation: Sinus rhythm, no ST elevation or ectopy noted. Regular rate at 76 bpm. No prior exam available for comparison. Computer generated interpretation: Sinus rhythm, arm leads reversed, normal EKG, unconfirmed report. Discharge Plan Discharge Patient Disposition: Home Clinical Impression: Anxiety about health Chest pain Qualifiers: Chest pain type: other chest pain Qualified Code(s): R07.89 - Other chest pain Condition: Stable Prescriptions: No Action fluticasone propion-salmeterol [Advair Diskus] 100-50 mcg/dose blister with device 1 inh inhalation BID PRN (Reason: unknown) omeprazole [Prilosec] 40 mg Capsule,Delayed Release(Dr/Ec) 40 mg PO QAM levothyroxine 25 mcg Tablet 25 mcg PO QAM Tylenol Ex Str Rapid Release 500 mg Tablet 1,000 mg PO Q6H PRN (Reason: Pain) meloxicam 7.5 mg tablet 7.5 mg PO DAILY PRN (Reason: Pain) Flonase Allergy Relief 50 mcg/actuation [place],Suspension 2 spray INTRANASAL DAILY PRN (Reason: Allergy Symptoms) olopatadine 0.2 % drops 1 drp ophthalmic (eye) BID Advil PM 200-38 mg Tablet 2 tab PO BEDTIME PRN (Reason: Sleep) levocetirizine 5 mg tablet 5 mg PO DAILY Kratom 4 tab PO DAILY PRN (Reason: Pain) Discharge Orders: Discharge ED (Routine); Ordered 10/18/23 Ordered By: Lio Loving Referrals: Stacy Suggs DO [Primary Care Provider] - Discharge Diet: Usual diet Discharge Activity: Increase activity as tolerated Patient Instructions: Chest Pain (ED) Activity Restrictions/Additional Instructions: Follow-up with primary care for further evaluation and treatment. Return to ER for new concerns or worsening symptoms. 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
[2023-10-18 20:13] LABS: Basophils % 0.4 %; Eosinophils # 0.2 10^3/uL (0.0-0.8); Eosinophils % 2.4 %; Hematocrit 36.5 % (36-47); Lymphocytes % 30.4 %; Mean Corpuscular HGB Conc 32.3 g/dL (30-55); Mean Corpuscular Hemoglobin 26.6 pg (27-33); Mean Corpuscular Volume 82.4 fl (85-98); Mean Platelet Volume 10.6 fL (7.4-10.4); Monocytes # 0.7 10^3/uL (0.2-0.9); Monocytes % 7.1 %; Neutrophils # 5.93 10^3/uL (1.8-7.7); Neutrophils % 59.3 %; Nucleated Red Blood Cells % 0 %; Platelet Count 319 10^3/cmm (157-399); Red Blood Count 4.43 10^6/uL (3.85-5.65); Red Cell Distribution Width 14.1 % (12.1-15.1)
[2023-10-18 20:34] LABS: HCG, Serum Qual Negative (Negative)
[2023-10-18 20:38] LABS: Alanine Aminotransferase 9 U/L (0-33); Albumin Level 3.5 g/dL (3.5-5.2); Alkaline Phosphatase 95 U/L (35-105); Anion Gap 12.6 (5-19); Aspartate Amino Transferase 14 U/L (0-32); Blood Urea Nitrogen 7 mg/dL (6-20); Calcium 8.8 mg/dL (8.5-10.5); Carbon Dioxide 25 mmol/L (22-29); Chloride 103 mmol/L (98-107); Creatinine Clr Calc Pharmacy 158.1649; Globulin 3.2 g/dL (1.3-4.6); Glomerular Filtration Rate 96.4 mL/min (90-130); Glucose 79 mg/dL (65-115); Osmolality Calculated 281 mOsm/kg (285-295); Potassium 3.6 mmol/L (3.5-5.1); Sodium 137 mmol/L (136-145); Total Bilirubin 0.2 mg/dL (0.15-1.2); Total Protein 6.7 g/dL (6.6-8.7)
[2023-10-18 20:40] LABS: Troponin(5th) Baseline < 6 ng/L (0-10)
[2023-10-18 20:42] VITALS: BP 126/74; PULSE 80; RESP 21; O2SAT 81
[2023-10-18 21:14] LABS: Add Urine Microscopic? YES
[2023-10-18 21:15] VITALS: BP 137/85; PULSE 82; RESP 14; O2SAT 100
[2023-10-18 21:15] LABS: Bacteria Urine 1+ /hpf; Bilirubin Urine Neg (Negative); Blood Urine Neg (Negative); Glucose Urine UA Norm (Normal); Ketones Urine 1+ (Negative); Leukocyte Esterase Urine Trace (Negative); Mucus Urine TRACE /hpf; Nitrate Urine Negative (Negative); Protein Urine Neg (Negative); RBC Urine 0-4 /hpf (0-2); Urine Appearance Hazy (CLEAR); Urine Color Yellow (Yellow); Urobilinogen Urine 1 mg/dL (Negative); pH Urine 7 (5-7)
[2023-10-18 21:16] LABS: Amorphous Sediment Urine TRACE /hpf
[2023-10-18 21:31] VITALS: BP 160/94; PULSE 79; RESP 16; O2SAT 98
[2023-10-18 22:00] LABS: Troponin 5 2HR Delta 5.60001 ABS# (0-10)
== END 2023-10-18 21:34 | disposition home or self-care (01) ==
PROVIDERS: Emergency Provider Nurse Practitioner Family; PCP Family Medicine
DX: R07.89 Other chest pain (principal); F41.9 Anxiety disorder, unspecified
CPT/HCPCS: 36415; 71045; 80053; 81001; 84484; 84703; 85025; 93005; 99285

== ENCOUNTER 2025-02-25 19:59 | Emergency (ER) | payer BC, MEDICAID, SELFPAY ==
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
[2025-02-25 20:07] VITALS: BP 110/71; PULSE 92; RESP 18; TEMP 36.9; O2SAT 97; BMI 51.7
[2025-02-25 20:52] LABS: Hematocrit 39.7 % (36-47); Hemoglobin 12.80 g/dL (11.27-16.99); Mean Corpuscular HGB Conc 32.2 g/dL (30-55); Mean Corpuscular Hemoglobin 27.4 pg (27-33); Mean Corpuscular Volume 84.8 fl (85-98); Nucleated Red Blood Cells % 0 %; Platelet Count 280 10^3/cmm (157-399); Red Blood Count 4.68 10^6/uL (3.85-5.65); White Blood Count 9.09 10^3/uL (3.29-11.43)
[2025-02-25 20:53] VITALS: BP 118/71; PULSE 83; O2SAT 97
--- NOTE | 2025-02-25 20:59 | ECG_ITS ---
[facility]25 Pat Name: Debbie Mijares Department: Room: Gender: Female [employer]: : 1990 Requested By: Robinson Abrams Order Number: [id number] Reading MD: Measurements Intervals [place] Rate: 82 P: 23 ID: [id number] QRS: 14 QRSD: 94 T: 16 QT: 351 QTc: 411 Interpretive Statements SINUS RHYTHM [email or web address]
--- NOTE | 2025-02-25 21:03 | W.ED.ABDPA2 ---
HPI - Abdominal Pain General: Chief Complaint: Abdominal Pain Stated Complaint: left side/abd pain Time Seen by Provider: 02/25/25 20:34 History of Present Illness: 34-year-old female who is on day 4 of left upper quadrant abdominal discomfort. Mild nausea. No vomiting. No diarrhea. No fever. She has a history of cholecystectomy and 2 C-sections she says. Pain is up under the ribs on her left side. No shortness of breath. She is on Zepbound for weight loss, and concerned she might have pancreatitis. No dysuria. Related Data Date of Last Menstrual Period: 02/16/25 Home Medications ?Medication ?Instructions ?Recorded ?Confirmed levothyroxine 25 mcg tablet 25 mcg PO QAM 08/26/20 03/23/23 omeprazole 40 mg capsule,delayed 40 mg PO QAM 07/10/21 03/23/23 release fluticasone 100 mcg-salmeterol 50 1 inh inhalation BID PRN unknown 08/19/21 03/23/23 mcg/dose blistr powdr for inhalation (Advair Diskus) Kratom 4 tab PO DAILY PRN Pain 03/23/23 03/23/23 acetaminophen 500 mg tablet 1,000 mg PO Q6H PRN Pain 03/23/23 03/23/23 fluticasone propionate 50 2 spray intranasal DAILY PRN 03/23/23 03/23/23 mcg/actuation nasal Allergy Symptoms spray,suspension (Flonase Allergy Relief) ibuprofen-diphenhydramine citrate 2 tab PO BEDTIME PRN Sleep 03/23/23 03/23/23 200 mg-38 mg tablet (Advil PM) levocetirizine 5 mg tablet 5 mg PO DAILY 03/23/23 03/23/23 meloxicam 7.5 mg tablet 7.5 mg PO DAILY PRN Pain 03/23/23 03/23/23 olopatadine 0.2 % eye drops 1 drp ophthalmic (eye) BID 03/23/23 03/23/23 tirzepatide (weight loss) 5 mg/0.5 mg SUBCUT 02/25/25 mL subcutaneous pen injector (Zepbound) Allergies Allergy/AdvReac Type Severity Reaction Status Date / Time celecoxib (From Celebrex) Allergy ALGY-Hives Verified 03/23/23 10:04 guaifenesin Allergy ALGY-Hives Verified 03/23/23 10:04 hydrocodone Allergy ALGY-Hives Verified 03/23/23 10:04 PFSH ED PFSH: Medical History GERD (gastroesophageal reflux disease) Surgical History Hx of section Hx of cholecystectomy History of surgical removal of ganglion cyst Family History Mother Diabetes Hypertension Heart disease Hyperlipidemia Father Diabetes CAD (coronary artery disease) Hypertension Clotting disorder Denies family history of Colon cancer Ovarian cancer Breast cancer Anesthesia complication Bleeding disorder Uterine cancer Thyroid disease Stroke Female Reproductive History: Date of last menstrual period: 02/16/25 Physical Exam Const: COMMON NORMALS: no acute distress GENERAL APPEARANCE: cooperative; not ill appearing and not frail appearing HENMT: COMMON NORMALS: normocephalic, atraumatic and Normal external nose present HEAD & SCALP: normocephalic and atraumatic FACE & SINUS: normal facial exam and face symmetric NOSE: Normal external nose present Eye: COMMON NORMALS: Equal, round and reactive pupils present and EOMs intact bilaterally PUPIL: Yes Equal, round and reactive pupils present Neck/C-Spine: GENERAL: Yes trachea midline Chest: CHEST: Yes Symmetrical chest wall rise Resp: COMMON NORMALS: normal respiratory effort, No retractions, No use of accessory muscles and clear to auscultation bilaterally AUSCULTATION: clear to auscultation bilaterally Cardio: COMMON NORMALS: regular rate and regular rhythm RATE: regular rate RHYTHM: regular rhythm GI: COMMON NORMALS: Normal to inspection, nondistended, normoactive bowel sounds present Extremity: COMMON NORMALS: no pedal edema Neuro: STEPHEN COMA SCALE: document GCS findings [place] coma scale eye opening: Spontaneous [place] coma scale verbal response: Orientated [place] coma scale motor response: Obey commands Stephen coma scale total score: 15 SENSORY EXAM: Yes extremities (intact) Psych: COMMON NORMALS: speech normal SPEECH: Yes normal speech Skin: COMMON NORMALS: no rashes or lesions noted GENERAL SKIN EXAM: no rashes or lesions noted Course Vital Signs: Vital signs: Vital Signs Temperature 98.5 F 02/25/25 20:07 Pulse Rate 78 02/25/25 22:13 Respiratory Rate 18 02/25/25 20:07 Blood Pressure 121/88 02/25/25 22:13 Pulse Oximetry 97 02/25/25 22:13 Oxygen Delivery Me thod Nasal Cannula 02/25/25 22:13 MDM - Abdominal Pain Medical Decision Making Patient's vitals are normal. She is in no distress. Nontoxic in appearance. CBC BMP are normal. Liver enzymes are normal. CRP is 21. Lipase is 30. Urinalysis is negative. She is improved to some degree after GI cocktail she believes. She will be discharged home. Outpatient follow-up. Lab Data 02/25/25 20:46 02/25/25 20:46 Labs/Radiology: Laboratory Results WBC 9.09 10^3/uL (3.29-11.43) 02/25/25 20:46 RBC 4.68 10^6/uL (3.85-5.65) 02/25/25 20:46 Hgb 12.80 g/dL (11.27-16.99) 02/25/25 20:46 Hct 39.7 % (36-47) 02/25/25 20:46 MCV 84.8 fl (85-98) L 02/25/25 20:46 MCH 27.4 pg (27-33) 02/25/25 20:46 MCHC 32.2 g/dL (30-55) 02/25/25 20:46 RDW 14.0 % (12.1-15.1) 02/25/25 20:46 Plt Count 280 10^3/cmm (157-399) 02/25/25 20:46 MPV 11.8 fL (7.4-10.4) H 02/25/25 20:46 Neut % (Auto) 66.4 % 02/25/25 20:46 Lymph % (Auto) 25.9 % 02/25/25 20:46 [place] % (Auto) 5.9 % 02/25/25 20:46 Eos % (Auto) 1.3 % 02/25/25 20:46 Baso % (Auto) 0.3 % 02/25/25 20:46 Neut # (Auto) 6.03 10^3/uL (1.8-7.7) 02/25/25 20:46 Lymph # (Auto) 2.4 10^3/uL (0.8-4.8) 02/25/25 20:46 [place] # (Auto) 0.5 10^3/uL (0.2-0.9) 02/25/25 20:46 Eos # (Auto) 0.1 10^3/uL (0.0-0.8) 02/25/25 20:46 Baso # (Auto) 0.0 10^3/uL (0.0-0.1) 02/25/25 20:46 Nucleated RBC % (auto) 0 % 02/25/25 20:46 Nucleated RBCs # 0.0 /100WBC 02/25/25 20:46 Sodium 139 mmol/L (136-145) 02/25/25 20:46 Potassium 3.7 mmol/L (3.5-5.1) 02/25/25 20:46 Chloride 102 mmol/L (98-107) 02/25/25 20:46 Carbon Dioxide 24 mmol/L (22-29) 02/25/25 20:46 Anion Gap 16.7 (5-19) 02/25/25 20:46 BUN 11 mg/dL (6-20) 02/25/25 20:46 Creatinine 0.8 mg/dL (0.5-0.9) 02/25/25 20:46 GFR Calculation 82.1 mL/min (90-130) L 02/25/25 20:46 Glucose 94 mg/dL (65-115) 02/25/25 20:46 Calculated Osmolality 287 mOsm/kg (285-295) 02/25/25 20:46 Calcium 9.7 mg/dL (8.5-10.5) 02/25/25 20:46 Total Bilirubin 0.5 mg/dL (0.15-1.2) 02/25/25 20:46 AST 14 U/L (0-32) 02/25/25 20:46 ALT 13 U/L (0-33) 02/25/25 20:46 Alkaline Phosphatase 75 U/L (35-105) 02/25/25 20:46 Troponin T Baseline < 6 ng/L (0-10) 02/25/25 20:46 C-Reactive Protein 20.8 mg/L (0.0-4.9) H 02/25/25 20:46 Total Protein 7.5 g/dL (6.6-8.7) 02/25/25 20:46 Albumin 4.0 g/dL (3.5-5.2) 02/25/25 20:46 Globulin 3.5 g/dL (1.3-4.6) 02/25/25 20:46 Lipase 30 U/L (13-60) 02/25/25 20:46 HCG, Qual Negative (Negative) 02/25/25 20:46 Urine Color Yellow (Yellow) 02/25/25 20:58 Urine Appearance Clear (CLEAR) 02/25/25 20:58 Urine pH 5.0 (5-7) 02/25/25 20:58 Ur Specific [place] 1.035 (1.005-1.030) H 02/25/25 20:58 Urine Protein Trace (Negative) A 02/25/25 20:58 Urine Glucose (UA) Negative (Normal) 02/25/25 20:58 Urine Ketones 1+ (Negative) H 02/25/25 20:58 Urine Blood Negative (Negative) 02/25/25 20:58 Urine Nitrate Negative (Negative) 02/25/25 20:58 Urine Bilirubin Negative (Negative) 02/25/25 20:58 Urine Urobilinogen 1.0 mg/dL (Negative) 02/25/25 20:58 Ur Leukocyte Esterase Negative (Negative) 02/25/25 20:58 Urine RBC 0-2 /hpf (0-2) 02/25/25 20:58 Urine WBC 0-5 /hpf (0-5) 02/25/25 20:58 Ur Squamous Epith Cells 0-5 /hpf (0-5) 02/25/25 20:58 Amorphous Sediment Not Reportable 02/25/25 20:58 Urine Bacteria None seen /hpf (NONE) 02/25/25 20:58 Hyaline Casts 5.36 /lpf 02/25/25 20:58 No radiology studies performed this visit Discharge Plan Discharge Patient Disposition: Home Clinical Impression: Left upper quadrant abdominal pain Condition: Stable Prescriptions: No Action fluticasone propion-salmeterol [Advair Diskus] 100-50 mcg/dose blister with device 1 inh inhalation BID PRN (Reason: unknown) omeprazole [Prilosec] 40 mg Capsule,Delayed Release(Dr/Ec) 40 mg PO QAM levothyroxine 25 mcg Tablet 25 mcg PO QAM Zepbound 5 mg/0.5 mL pen injector SUBCUT Tylenol Ex Str Rapid Release 500 mg Tablet 1,000 mg PO Q6H PRN (Reason: Pain) meloxicam 7.5 mg tablet 7.5 mg PO DAILY PRN (Reason: Pain) Flonase Allergy Relief 50 mcg/actuation [place],Suspension 2 spray INTRANASAL DAILY PRN (Reason: Allergy Symptoms) olopatadine 0.2 % drops 1 drp ophthalmic (eye) BID Advil PM 200-38 mg Tablet 2 tab PO BEDTIME PRN (Reason: Sleep) levocetirizine 5 mg tablet 5 mg PO DAILY Kratom 4 tab PO DAILY PRN (Reason: Pain) Discharge Orders: Discharge ED (Routine); Ordered 02/25/25 Ordered By: Robinson Rouse Referrals: Stacy Suggs DO [Primary Care Provider, CLINICAL TRIALS ASSISTANT] - 4-7 days Patient Instructions: Abdominal Pain (ED), Opioid Safety, Pain Management, Patient Portal & Izabela Instructions Activity Restrictions/Additional Instructions: Return for worsening pain, fever, vomiting, other concerning symptoms. Call your doctor Thursday for a follow-up appointment. Print Language: British Coding Level of Care Code ED Coding Coordinator for Hermelindo Jean Baptiste
[2025-02-25 21:07] LABS: HCG, Serum Qual Negative (Negative)
[2025-02-25] MEDS: lidocaine 2% viscous 15 ML, aluminum-mag hydrox-simethicon 30 ML, sucralfate oral liq 1 GM PO (21:08)
[2025-02-25 21:09] LABS: Troponin(5th) Baseline < 6 ng/L (0-10)
[2025-02-25 21:10] LABS: Alanine Aminotransferase 13 U/L (0-33); Albumin Level 4.0 g/dL (3.5-5.2); Alkaline Phosphatase 75 U/L (35-105); Anion Gap 16.7 (5-19); Aspartate Amino Transferase 14 U/L (0-32); Blood Urea Nitrogen 11 mg/dL (6-20); Calcium 9.7 mg/dL (8.5-10.5); Carbon Dioxide 24 mmol/L (22-29); Chloride 102 mmol/L (98-107); Creatinine Clr Calc Pharmacy 122.6261; Globulin 3.5 g/dL (1.3-4.6); Glucose 94 mg/dL (65-115); Lipase 30 U/L (13-60); Osmolality Calculated 287 mOsm/kg (285-295); Potassium 3.7 mmol/L (3.5-5.1); Sodium 139 mmol/L (136-145); Total Protein 7.5 g/dL (6.6-8.7)
[2025-02-25 21:12] LABS: Glucose Urine UA Negative (Normal); Nitrate Urine Negative (Negative)
[2025-02-25 21:17] LABS: Add Urine Microscopic? YES; Specific Gravity, Urine 1.035 (1.005-1.030); Universal Test for UA Present (0)
[2025-02-25 22:13] VITALS: BP 121/88; PULSE 78; O2SAT 97
== END 2025-02-26 00:40 | disposition home or self-care (01) ==
PROVIDERS: Emergency Medicine; Emergency Provider Emergency Medicine; PCP Family Medicine
DX: R10.12 Left upper quadrant pain (principal)
CPT/HCPCS: 36415; 80053; 81001; 83690; 84484; 84703; 85025; 86140; 93005; 99284; J9999